=== PATIENT | male | born 1955 | race Caucasian/White ===

== ENCOUNTER 2017-03-10 14:16 | Outpatient (CLI) | payer OTHER ==
[2017-03-10 13:32] LABS: ALBUMIN/GLOBULIN RATIO 1.5 (1.0-2.2); BILIRUBIN,TOTAL 0.7 mg/dL (0.2-1.0); BUN - BLOOD UREA NITROGEN 13 mg/dL (6-20); CALCIUM 9.1 mg/dL (8.5-10.3); CARBON DIOXIDE - CO2 27 mmol/L (21-32); CHLORIDE 105 mmol/L (101-111); CHOL/HDL RATIO 2.8 (<5.0); CHOLESTEROL 161 mg/dL; CREATININE 0.9 mg/dL (0.6-1.2); GFR - MDRD 86 (>89); GLUCOSE 102 mg/dL (70-100); HDL CHOLESTEROL 58 mg/dL; LDL/HDL RATIO 1.5 (<3.6); POTASSIUM 4.4 mmol/L (3.5-5.0); SODIUM 138 mmol/L (135-145); TOTAL PROTEIN 7.2 g/dL (6.7-8.2); TRIGLYCERIDES 86 mg/dL; VLDL CHOLESTEROL 17 mg/dL
== END 2017-03-10 14:17 | disposition home or self-care (01) ==
LOC: LAB.R 14:16
PROVIDERS: ATTEND Internal Medicine
DX: R97.20 Elevated prostate specific antigen [PSA] (principal); E78.5 Hyperlipidemia, unspecified; E03.9 Hypothyroidism, unspecified; Z79.899 Other long term (current) drug therapy
CPT/HCPCS: 80053; 80061; 84153; 84443

== ENCOUNTER 2017-06-21 10:39 | Outpatient (CLI) | payer OTHER ==
[2017-06-21 11:43] LABS: PSA FREE 0.476 ng/mL (0.16-2.81)
[2017-06-21 11:44] LABS: PSA TOTAL 2.995 ng/mL (0.000-2.000)
== END 2017-06-21 10:40 | disposition home or self-care (01) ==
LOC: LAB 10:39
PROVIDERS: ATTEND Internal Medicine
DX: R89.9 Unspecified abnormal finding in specimens from other organs, systems and tissues (principal)
CPT/HCPCS: 36415; 84154

== ENCOUNTER 2018-04-03 08:13 | Outpatient (CLI) | payer OTHER ==
[2018-04-03 13:25] LABS: BASOPHILS # (AUTO) 0.1 10^3/uL (0.0-0.1); BASOPHILS % (AUTO) 1.1 %; EOSINOPHILS # (AUTO) 0.3 10^3/uL (0.0-0.7); EOSINOPHILS % (AUTO) 4.3 %; HGB - HEMOGLOBIN 15.5 g/dL (14.0-18.0); LYMPHOCYTES # (AUTO) 1.1 10^3/uL (1.5-3.5); LYMPHOCYTES % (AUTO) 16.5 %; MEAN CORPUSCULAR HEMOGLOBIN 30.9 pg (27.0-31.0); MEAN CORPUSCULAR VOLUME 88.3 fL (80.0-94.0); MEAN PLATELET VOLUME 9.3 fL (7.4-11.4); MONOCYTES # (AUTO) 0.6 10^3/uL (0.0-1.0); MONOCYTES % (AUTO) 8.1 %; NEUTROPHILS # (AUTO) 4.8 10^3/uL (1.5-6.6); PLT - PLATELET COUNT 172 10^3/uL (130-450); RED BLOOD COUNT 5.01 10^6/uL (4.70-6.10); RED CELL DISTRIBUTION WIDTH 14.5 % (12.0-15.0); WHITE BLOOD COUNT 6.9 x10^3/uL (4.8-10.8)
[2018-04-03 13:50] LABS: PSA FREE 1.257 ng/mL (0.16-2.81)
[2018-04-03 13:51] LABS: PSA TOTAL 5.264 ng/mL (0.000-2.000)
[2018-04-03 13:58] LABS: ALBUMIN 4.1 g/dL (3.2-5.5); ALBUMIN/GLOBULIN RATIO 1.2 (1.0-2.2); ALKALINE PHOSPHATASE 89 IU/L (42-121); ALT ALANINE AMINOTRANSFERASE 23 IU/L (10-60); AST ASPARTATE AMINOTRANSFERASE 19 IU/L (10-42); BILIRUBIN,TOTAL 0.9 mg/dL (0.2-1.0); BUN - BLOOD UREA NITROGEN 17 mg/dL (6-20); CARBON DIOXIDE - CO2 27 mmol/L (21-32); CHLORIDE 103 mmol/L (101-111); CHOL/HDL RATIO 3.9 (<5.0); CHOLESTEROL 189 mg/dL; CREATININE 0.9 mg/dL (0.6-1.2); GFR - MDRD 86 (>89); GLUCOSE 117 mg/dL (70-100); HDL CHOLESTEROL 48 mg/dL; LDL CHOLESTEROL,CALCULATED 122 mg/dL; LDL/HDL RATIO 2.5 (<3.6); SODIUM 138 mmol/L (135-145); TOTAL PROTEIN 7.4 g/dL (6.7-8.2); VLDL CHOLESTEROL 19 mg/dL
== END 2018-04-03 23:59 | disposition home or self-care (01) ==
LOC: LAB.R 08:13
PROVIDERS: ATTEND Internal Medicine
DX: R97.20 Elevated prostate specific antigen [PSA] (principal); R89.9 Unspecified abnormal finding in specimens from other organs, systems and tissues; E78.5 Hyperlipidemia, unspecified; E03.9 Hypothyroidism, unspecified
CPT/HCPCS: 80053; 80061; 83721; 84153; 84154; 84443; 85025

== ENCOUNTER 2018-12-12 09:37 | Outpatient (CLI) | payer OTHER ==
[2018-12-12 10:07] LABS: HB2 TOTAL 16.3 g/dL; HEMOGLOBIN A1C 0.59 g/dL; HEMOGLOBIN A1C % 5.5 % (4.6-6.2)
[2018-12-12 10:08] LABS: CREATININE 0.8 mg/dL (0.6-1.2)
== END 2018-12-12 09:38 | disposition home or self-care (01) ==
LOC: LAB 09:37
PROVIDERS: ATTEND Family Medicine
DX: R73.9 Hyperglycemia, unspecified (principal)
CPT/HCPCS: 36415; 80048; 83036

== ENCOUNTER 2025-03-03 18:17 | Inpatient (IN) ==
--- OUTSIDE RECORDS SUMMARY | 2025-03-03 18:19 | EXTERNAL MEDICAL SUMMARY RPT | Encounter Summary ---
Author Organization [facility] Address [address] [place] [address] Care Team Providers Care Marketing Administrator Name Role Phone SantyYisel elizabeth Primary Care Provider [phone] Encounter Details Date Type Department Care Team (Late st Contact Info) Description 11/22/2020 Orders Only [facility] Orthopedics [place] [address] [place] [address] Ascencion Villanueva DO [address] [address] Primary osteoarthritis of right knee (Primary Dx) Social History Tobacco Use Types Packs/Day Years Used Date Smoking Tobacco: Never Smokeless Tobacco: Never Alcohol Use Standard Drinks/Week Comments Not Currently 0 (1 standard drink = 0.6 oz pur e alcohol) STOPPED 2019 PHQ-2 Answer Date Recorded PHQ-2 Score 0 04/16/2020 Sex and Gender Information Value Date Recorded Sex Assigned at Male 06/26/2020 7:34 AM PDT Legal Sex Male 3:39 PM PDT Gender Identity Male 05/31/2024 4:43 PM PST Sexual Orientation Straight 05/31/2024 4: 43 PM PST Occupation Industry Job Start Date Job End Date 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 No / Unsure 11/10/2020 11:53 AM PDT documented as of this encounter Plan of Treatment Upcoming Encounters Date Type Department Care Team (Late st Contact Info) Description 03/26/2025 11:20 AM PST Office Visit [facility] Cardiology [place] [address] [place] [address], [address] [place] [phone] Della Cloud MD [address] [place] [address] [address] [place], [place] [phone] 04/30/2025 11:00 AM PST Office Visit [facility] Family Medicine [place] [address] [place] [address] Yisel Madera DO [address] [place] [phone] 05/27/2025 12:00 PM PST Office Visit [facility] - Sleep Medicine [address] [facility] [address] [place] [phone] Marely Gutierrez ARNP [address] [place], [place] [phone] documented as of this encounter Visit Diagnoses Diagnosis Primary osteoarthritis of right knee- Primary documented in this encounter Care Teams Marketing Administrator Relationship Specialty Start Date End Date Yisel Madera DO [facility] [place] [address] PCP - General Family Medicine 04/22/20 documented as of this encounter
--- OUTSIDE RECORDS SUMMARY | 2025-03-03 18:19 | EXTERNAL MEDICAL SUMMARY RPT | Encounter Summary ---
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 Not on file Not on file documented as of this encounter Plan of Treatment Upcoming Encounters Date Type Department Care Team (Late st Contact Info) Description 03/26/2025 11:20 AM PST Office Visit [facility] Cardiology [address], [address] [place] [address] Della Cloud MD [address] [address] [place] [address] 04/30/2025 11:00 AM PST Office Visit [facility] [address] [place] [address] Yisel Madera DO [address] [place] [address] 05/27/2025 12:00 PM PST Office Visit [facility] - Sleep Medicine [address] [facility] [address] [place] [address] Marely Gutierrez [facility] [address] [place] [address] documented as of this encounter Visit Diagnoses Not on filedocumented in this encounter Care Teams Structural Metal Worker Relationship Specialty Start Date End Date Yisel Madera DO [address] [place] [address] PCP - General Family Medicine 04/22/20 documented as of this encounter
--- OUTSIDE RECORDS SUMMARY | 2025-03-03 18:19 | EXTERNAL MEDICAL SUMMARY RPT | Patient Health Record ---
Author Organization [facility] Address [address] [id number] Care Team Providers Care Sap Pp Consultant Name Role Phone Michelle, Pcp Primary Care Provider Jey AgueroMason otto Tylor [phone] Allergies Allergen (clinical drug ingredient) Drug/Non Drug Allergy documented on EMR Reaction Allergy Type Onset Date Status amoxicillin Amoxicillin hot and chills Drug Allergy Active Results Component Value Reference Range Notes GI Histology Reviewed date:11/30/2024 07:08:14 AM Interpretation: Performing Lab: Notes/Report: Referring Physician : PCP MICHELLE, Location : [facility] : [address] [place] [address] [address], [place], [place] ,[address] A:Colon,Ascending Diagnosis Summary :Sessile serrated adenoma. MicroScopic Description : Clinical History:\line \b Symptoms \E : Other-Personal history of colon polyps,Grade/Stage I internal hemorrhoids,Mild diverticulosis of the descending colon and sigmoid colon,1 polyp (3 mm) in the ascending colon. (Polypectomy) Site ID:A Gross Description:Specimen(s) are received in formalin, labeled with the patient name and requisition number which is matched to the requisition and further consists of: two pieces, 3-7mm, sectioned, 1 cassette submitted for slide preparation. Electronically signed by : Dr.John Hubbard on :11/29/2024 13:59:11 Reason For Referral No Information Medications Medication SIG (Take, Route, Frequency, Duration) Notes Start Date End Date Status Suflave 178.7 GM Solution Reconstituted mL Orally as directed; Duration: 1 days 10/22/2024 Active Metoprolol Succinate 50 MG Capsule ER 24 Hour Sprinkle 1.5 tablets Orally Once a day Active Levothyroxine Sodium 200 MCG Tablet 1 tablet in the morning on an empty stomach Orally Once a day Active Immunizations Vaccine Route Administration Date Status Comme nts Influenza, seasonal, injecta ble (split), for 3 yrs and up Unknown 12/25/2012 Administered Social History Social History Additional Details Category Social Info Options Details Migrated Social History Migrated Social History Tobacco History : Never Smok ed , Caffeine History : Diet soda , Alcohol: Wine : Frequency Value: 1 glass daily , Number of Children : 2 , Exercise History: : [employer] daily Times A Day , Caffeine History : Coffee , Occupation History : Retired , NumberOfPreviousMarriages : 0 Problems Problem Type SNOMED Code ICD Code Onset Dates Problem Status W/U Status Risk Notes Problem Polyp of colon (disorder) (03097220) Colon polyps (K63.5) 02/04/2016 Active confirmed Problem Pain (00918785) Back Pain (chronic ) (R52) 02/16/2019 Active confirmed Vital Signs Weight-kg 131.54 kg 10/19/2024 Height 74 in 10/19/2024 Weight 290 lbs 10/19/2024 BMI 37.23 kg/m2 10/19/2024 Procedures Procedure Date Ordered Date Performed Result Body Sit e Fast Track Colonoscopy 10/19/2024 N/A Encounters Encounter Location Date Provider Diagnosis [facility] [place] [address] [place] [phone] 11/27/2024 Mason Mergener Encounter for screen ing for malignant neoplasm of colon Z12.11 ; Personal history of colon polyps, unspecified Z86.0100 ; Benign neoplasm of ascending colon D12.2 ; Diverticulosis of large intestine without perforation or abscess without bleeding K57.30 and First degree hemorrhoids K64.0 [facility] [address] [place] [phone] 10/19/2024 Mason Mergener Encounter for screen ing for malignant neoplasm of colon Z12.11 [facility] [place] [address] [place] [address] 10/22/2024 Mason Mergener Assessments Encounter Date Diagnosis (ICD Code) Assessment Notes Treatment Notes Treatment Clinical Notes Section Notes 10/19/2024 Encounter for screening for malignant neoplasm of colon (ICD-10 - Z12.11) 11/27/2024 Encounter for screening for malignant neoplasm of colon (ICD-10 - Z12.11) 11/27/2024 Personal history of colon polyps, unspecified (ICD-10 - Z86.0100) 11/27/2024 Benign neoplasm of ascending colon (ICD-10 - D12.2) 11/27/2024 Diverticulosis of large intestine without perforation or abscess without bleeding (ICD-10 - K57.30) 11/27/2024 First degree hemorrhoids (ICD-10 - K64.0) Plan Of Treatment Pending Test Test Name Order Date Fast Track Colonoscopy 10/19/2024 Insurance Providers Payer Name Payer Address Payer Phone Subscriber Number Group Number Insured Name Patient Relationship to Insured Coverage Start Date Coverage End Date MEDICARE B [place] [address] [place] [address] [id number] Willy Ac Self - patient is the insured [employer] SUPPLEMENT [address] [address] [place] [address] [id number] Willy Ac Self - patient is the insured Medical (General) History Medical History History ICD Code Problems: DJD Elevated PSA Sleep Apnea (CPAP) Thyroid disorder Colon polyps Diverticulosis Internal hemorrhoids Surgical History Surgery Date(Month/Year) Hip replacement, bilateral Knee surgery, bilateral L shoulder repair 2015 R Bicep reattachment 2016
--- OUTSIDE RECORDS SUMMARY | 2025-03-03 18:19 | EXTERNAL MEDICAL SUMMARY RPT | Encounter Summary ---
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 Not on file Not on file documented as of this encounter Plan of Treatment Upcoming Encounters Date Type Department Care Team ([facility] Contact Info) Description 03/26/2025 11:20 AM PST Office Visit [facility] Cardiology [address], [address] [place] [phone] Della Cloud MD [address] [place] [address] [address] [place], [place] [phone] 04/30/2025 11:00 AM PST Office Visit [facility] [address] [place] [address] Yisel Madera DO [address] [place] [address] 05/27/2025 12:00 PM PST Office Visit [facility] - Sleep Medicine [address] [facility] [address] [place] [address] Marely Gutierrez ARNP [address] [place] [address] documented as of this encounter Visit Diagnoses Diagnosis Acquired hypothyroidism Unspecified hypothyroidism documented in this encounter Care Teams Chef Head Relationship Specialty Start Date End Date Ysiel Madera DO [address] [place] [address] PCP - General Family Medicine 04/22/20 documented as of this encounter
--- OUTSIDE RECORDS SUMMARY | 2025-03-03 18:19 | EXTERNAL MEDICAL SUMMARY RPT | Clinical Summary ---
Author Organization [facility] Address [address], [place] [address] Care Team Providers Care Oral Health Therapist Name Role Phone Yisel Madera DO Primary Care Provider [phone] Allergies Active Allergy Reactions Criticality Noted Date Comments Amoxicillin Legacy Name: amoxicillin, Reaction: Gl bleed Social History Tobacco Use Types Packs/Day Years Used Date Smoking Tobacco: Never Assessed Sex and Gender Information Value Date Recorded Sex Assigned at Not on file Legal Sex Male 5:10 AM PDT Gender Identity Male 10/30/2021 5:10 AM PDT Sexual Orientation Not on file Last Filed Vital Signs Vital Sign Reading Time Taken Comments Blood Pressure - - Pulse 65 2021 11:05 AM PST Temperature - - Respiratory Rate 14 2021 11:05 AM PST Oxygen Saturation 95% 2021 11:05 AM PST Inhaled Oxygen Concentration - - Weight 134 kg (295 lb 10.2 oz) 2021 6:35 A M PST Height 188 cm (6' 2") 2021 6:35 AM PST Body Mass Index 37.96 2021 6:35 AM PST Plan of Treatment Not on file Care Teams Oral Health Therapist Relationship Specialty Start Date End Date Yisel Madera DO [address] [place] [phone] PCP - General 04/17/21
--- OUTSIDE RECORDS SUMMARY | 2025-03-03 18:19 | EXTERNAL MEDICAL SUMMARY RPT | Encounter Summary ---
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 Not on file Not on file documented as of this encounter Miscellaneous Notes * Telephone Encounter - Maribell Guevara - 06/28/2022 12:58 PM PDT Patient requesting refill of: Requested Prescriptions Pending Prescriptions Disp Refills • levothyroxine (SYNTHROID) 175 mcg tablet 90 tablet 2 Sig: Take 1 tablet (175 mcg total) by mouth daily Last Refilled: 12/04/2021 Discrepancies: None Last Office Visit With Yisel Madera DO: 12/29/2020 Future Office Visit With Provider: none Labs: Lab Results Component Value Date CREATININE 0.87 10/29/2020 K 4.9 10/29/2020 BCR 16.1 10/29/2020 TSH 0.574 07/13/2021 HGB 13.8 11/12/2020 documented in this encounter Plan of Treatment Upcoming Encounters Date Type Department Care Team (Late st Contact Info) Description 03/26/2025 11:20 AM PST Office Visit [facility] Cardiology [place] [address], [address] [place] [address] Della Cloud MD [address] [place], [place] [phone] 04/30/2025 11:00 AM PST Office Visit [facility] Family Medicine [place] [address] [place] [phone] Yisel Madera DO [address] [place] [address] 05/27/2025 12:00 PM PST Office Visit [facility] [place] - Sleep Medicine [address] [facility] [address] [place] [address] Marely Gutierrez ARNP [address] [place], [place] [phone] documented as of this encounter Visit Diagnoses Diagnosis Acquired hypothyroidism Unspecified hypothyroidism documented in this encounter Care Teams Hotel Reservationist Relationship Specialty Start Date End Date Yisel Madera DO [address] [place] [address] PCP - General Family Medicine 04/22/20 documented as of this encounter
--- OUTSIDE RECORDS SUMMARY | 2025-03-03 18:20 | EXTERNAL MEDICAL SUMMARY RPT | Encounter Summary ---
Author Organization [facility] Address [address] [place] [address] Care Team Providers Care Silver Lap Machine Tender Name Role Phone SantyYisel Primary Care Provider [phone] Reason for Visit * Reason Onset Date Comments reschedule surgery 06/12/2020 Encounter Details Date Type Department Care Team (Late st Contact Info) Description 06/12/2020 Telephone [facility]opedics [place] [address] [place] [phone] Ascencion Villanueva DO [address] [address] reschedule surgery Social History Tobacco Use Types Packs/Day Years Used Date Smoking Tobacco: Never Smokeless Tobacco: Never Alcohol Use Standard Drinks/Week Comments Yes 0 (1 standard drink = 0.6 oz pur e alcohol) 2-3 drinks weekly PHQ-2 Answer Date Recorded PHQ-2 Score 0 04/16/2020 Sex and Gender Information Value Date Recorded Sex Assigned at Male 06/26/2020 7:34 AM PDT Legal Sex Male 3:39 PM PDT Gender Identity Male 05/31/2024 4:43 PM PST Sexual Orientation Straight 05/31/2024 4: 43 PM PST Occupation Industry Job Start Date Job End Date 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 I am not able to use the one that is in the system since he was scheduled for surgery and checked in at the hospital but was cancelled so that case has been used, thank you! * Telephone Encounter - Jaymie Patel - 06/17/2020 4:03 PM PDT [place] has authorized surgery, called patient and got him scheduled for 4-[address] Villanueva. * Telephone Encounter - Jaymie Patel - 06/16/2020 5:23 PM PDT Authorization submitted to [place] for surgery. * Telephone Encounter - Luz Marina Sanz RN - 06/13/2020 7:48 AM PDT It looks like Willy was scheduled for a right RYLEY with Dr. Villanueva on 02/18/20. His surgery was cancelled the day of surgery due to new onset A. Fib with frequent PVCs. He was referred to Cardiology and has been following up with them regarding this. He had a telemedicine appointment yesterday with Dr. Cloud and per those OV notes: # Pre-op for hip surgery: patient is low to intermediate risk due to immobility and can proceed with it without further cardiac testing. - Continue metoprolol marcia-operative Forwarding to [employer]. Willy is okay to proceed with surgery at this time. Thank you! * Telephone Encounter - Sylvie Torres - 06/12/2020 3:37 PM PDT Patient was scheduled with Dr Villanueva for hip replacement surgery on 02/18/2020. Patient cancelled due to a cardiac event. Patient was cleared by cardiology today. Does patient need to see Dr Villanueva again or just schedule the surgery Please advise [phone] documented in this encounter Plan of Treatment Upcoming Encounters Date Type Department Care Team (Late st Contact Info) Description 03/26/2025 11:20 AM PST Office Visit [facility] [place] [address] [place] [address], [address] [place] [address] Della Cloud MD [address] [place] [address] [address] [place], [place] [phone] 04/30/2025 11:00 AM PST Office Visit [facility] Family Medicine [place] [address] [place] [phone] Yisel Madera DO [address] [place] [phone] 05/27/2025 12:00 PM PST Office Visit [facility] - Sleep Medicine [address] [facility] [address] [place] [phone] Marely Gutierrez ARNP [address] [place], [place] [phone] documented as of this encounter Visit Diagnoses Not on filedocumented in this encounter Care Teams Silver Lap Machine Tender Relationship Specialty Start Date End Date Yisel Madera DO [address] [place] [phone] PCP - General Family Medicine 04/22/20 documented as of this encounter
--- OUTSIDE RECORDS SUMMARY | 2025-03-03 18:20 | EXTERNAL MEDICAL SUMMARY RPT | Encounter Summary ---
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 Not on file Not on file documented as of this encounter Plan of Treatment Upcoming Encounters Date Type Department Care Team (Late st Contact Info) Description 03/26/2025 11:20 AM PST Office Visit [facility] Cardiology [address], [address] [place] [phone] Della Cloud MD [address] [place] [place] [address] 04/30/2025 11:00 AM PST Office Visit [facility] [address] [place] [address] Yisel Madera DO [address] [place] [address] 05/27/2025 12:00 PM PST Office Visit [facility] - Sleep Medicine [address] [facility] [address] [place] [address] Marely Gutierrez ARNP [address] [place] [address] documented as of this encounter Visit Diagnoses Diagnosis Acute knee pain, unspecified laterality- Primary documented in this encounter Care Teams Flour Inspector Relationship Specialty Start Date End Date Yisel Madera DO [address] [place] [address] PCP - General Family Medicine 04/22/20 documented as of this encounter
--- OUTSIDE RECORDS SUMMARY | 2025-03-03 18:20 | EXTERNAL MEDICAL SUMMARY RPT | Encounter Summary ---
Author Organization [facility] Address [address] [place] [address] Care Team Providers Care Button Reclaimer Name Role Phone Yisel Madera DO Primary Care Provider Encounter Details Date Type Department Care Team (Late st Contact Info) Description 02/07/2020 Case/Admission [facility] [place] [address] [place] [phone] Claritza Urrutia PA [address] [address] Social History Tobacco Use Types Packs/Day Years Used Date Smoking Tobacco: Never Smokeless Tobacco: Never Alcohol Use Standard Drinks/Week Comments Yes 0 (1 standard drink = 0.6 oz pur e alcohol) 2-3 drinks weekly Sex and Gender Information Value Date Recorded Sex Assigned at Male 06/26/2020 7:34 AM PDT Legal Sex Male 3:39 PM PDT Gender Identity Male 05/31/2024 4:43 PM PST Sexual Orientation Straight 05/31/2024 4: 43 PM PST documented as of this encounter H&P Notes * ANALISA Manriquez - 02/07/2020 11:51 AM PST Admission History and Physical by CY Choudhury for Dr. Villanueva Date of Admission: 02/18/2020 Willy Ac 1955 [id number] Impression: Right hip arthritis Plan: The patient would like to proceed with right total hip arthroplasty with anterolateral approach. The nature of the surgery, alternatives, and postpoerative course were discussed with the patient. Risks and complications of surgery were reviewed. These include, but are not limited to: Anesthetic risk, medical complications such as heart attack, stroke, deep vein thrombosis or pulmonary embolism, respiratory or cardiac arrest, or . There is risk of injury to nerves, tendons, blood vessels, fracture, or possible need for additional surgery. Additional risks associated with total hip replacement including potential for postoperative stiffness, fracture around the prosthesis both intraoperatively and at a later date, instability of the joint, potential for malalignment of the prosthesis, potential for leg length inequality, possibility that the prosthesis may loosen or need to be revised at a later date, and possible need for postoperative blood transfusion. Patient was advised regarding the potential for infection both early and late. The difficulties associated with an infected joint replacement were discussed including the possible need to remove the prosthesis. The patient hadopportunity to ask questions. The patient has given his written and verbal consent to undergo the above procedure. Anticoagulation plan: aspirin Analgesia plan: oxycodone Torres: No Admission status: OPIB Patient will have routine postop follow up at 2 weeks with PA for wound check and at [address] Villanueva , with xrays. The patient was instructed to stop aspirin and NSAID's 1 week prior to surgery and was given written instructions and the materials for pre-op skin prep. He has been instructed to get a COVID generalscreening test 3 days prior to surgery. LEFT HIP IMPLANTS: Femur = 5 Tri-lock Cup = 60 mm Liner = 36 neutral Head = 36 +1 ceramic No chief complaint on file. HPI: The patient is a 64 y.o. male complaining of Right hip pain. He had the left hip replaced 04/2017 and it has done very well. He now wishes to have the right hip replaced. The pain is located lateral which radiates down the leg Patient describes the pain as: aching most of the time, worse the day after activity Tingling, numbness or paresthesias: no Snapping, popping or grinding: no Stiffness: yes, worse after sitting Instability: no Ambulates: occasionally uses trekking poles. 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 • Sleep apnea Uses CPAP Past Surgical History: Procedure Laterality Date • [place] TOTAL HIP ARTHROPLASTY Left 05/10/2017 Procedure: LEFT ANTERIOR TOTAL HIP ARTHROPLASTY; Surgeon: Ascencion Villanueva DO; Location: [facility]; Service: Orthopedics • SHOULDER ARTHROSCOPY Left 04/13/2016 With SAD, distal clavical resection • SHOULDER ARTHROSCOPY Right 04/15/2015 w bicepes tendonesis No Known Allergies Current Outpatient Medications Medication Sig Dispense Refill • ibuprofen (ADVIL,MOTRIN) 200 mg tablet Take 200 mg by mouth every 6 (six) hours as needed for mild pain Takes 800 mg PRN • levothyroxine (SYNTHROID, LEVOTHROID) 200 mcg tablet Take 200 mcg by mouth once daily. 0 No current facility-administered medications for this visit. No family history on file. Social History Socioeconomic History • Marital status: Spouse name: Not on file • Number of children: Not on file • Years of education: Not on file • Highest education level: Not on file Occupational History • Not on file Social Needs • Financial resource strain: Not on file • Food insecurity Worry: Not on file Inability: Not on file • Transportation needs Medical: Not on file Non-medical: Not on file Tobacco Use • Smoking status: Never Smoker • Smokeless tobacco: Never Used Substance and Sexual Activity • Alcohol use: Yes Comment: 2-3 drinks weekly • Drug use: Yes Types: Marijuana Comment: inhale • Sexual activity: Defer Lifestyle • Physical activity Days per week: Not on file Minutes per session: Not on file • Stress: Not on file Relationships • Social connections Talks on phone: Not on file Gets together: Not on file Attends gnosticist service: Not on file Active member of club or organization: Not on file Attends meetings of clubs or organizations: Not on file Relationship status: Not on file Other Topics Concern • Not on file Social History Narrative • Not on file Review of Systems Constitutional: Negative for fatigue, fever, night sweats and unexpected weight change. ENT: Negative for headache, vision loss. Respiratory: Negative for cough and shortness of breath. Cardiovascular: Negative for chest pain and palpitations. Gastrointestinal: Negative for constipation, diarrhea, nausea and vomiting. Endocrine: Negative for cold intolerance and heat intolerance. Genitourinary: Negative for difficulty urinating, dysuria, blood in urine. Skin: Negative for rash. Allergic/Immunologic: Negative for environmental allergies and food allergies. Neurological: Negative for headaches and vision loss. Hematological: Negative for easy bruising Physical Exam: There were no vitals taken for this visit. The patient is a 64 y.o. male well appearing, well nourished, in no acute distress. Alert, orientedand cooperative to exam. Normal mood and affect. HEENT: Head is normocephalic, atraumatic. Sclera non-icteric Lungs: Clear to auscultation with no crackles, rhonchi or wheezes Heart: Regular rate and rhythm with no murmurs, gallop or rub Abdomen: Soft, nontender Extremity: Right Hip: The skin is intact. Negative for erythema, masses or trophic changes. Tender to palpation over the anterior joint. Leg Length discrepancy: none JOSEPH: positive FABIR: positive Straight leg raise: negative for groin pain ROM: Right Flexion: 90 External rotation: 20 Abduction: 30 Internal rotation: -10 Neurologic: Sensation is grossly intact to light touch in all dermatomes. Vascular: Foot is pink, warm and well perfused. Dorsalis pedis pulse is palpable. Labs: Ordered: CBC, BMP COVID-19 general screening Diagnostic Studies: Xrays of the pelvis and 2 views of the right hip reveal severe joint space narrowing, osteophytes, subchondral sclerosis, cystic changes ANALISA Manriquez documented in this encounter Plan of Treatment Upcoming Encounters Date Type Department Care Team (Late st Contact Info) Description 03/26/2025 11:20 AM PST Office Visit [facility] [address], [address] [place] [phone] Della Cloud MD [address] [place] [address] [address] [place] [address] 04/30/2025 11:00 AM PST Office Visit [facility] [place] [address] [place] [phone] Yisel Madera DO [address] [place] [address] 05/27/2025 12:00 PM PST Office Visit [facility] [place] [facility] [address] [facility] [address] [place] [address] Marely Gutierrez, LIGIA [address] [place] [address] documented as of this encounter Visit Diagnoses Not on filedocumented in this encounter Care Teams Button Reclaimer Relationship Specialty Start Date End Date Yisel Madera DO [address] [place] [address] PCP - General Family Medicine 04/22/20 documented as of this encounter
--- OUTSIDE RECORDS SUMMARY | 2025-03-03 18:20 | EXTERNAL MEDICAL SUMMARY RPT ---
Author Organization [facility] Address [address] [id number] Care Team Providers Care Signals Collection Technician Name Role Phone No, Pcp Primary Care Provider Mason Shahid Unavailable [phone] REASON FOR VISIT Personal Hx of Colon Polyps, Encounters Encounter Location Date Provider Diagnosis [facility] [address] [place] [address] 11/27/2024 Mason Duran Encounter for screen ing for malignant neoplasm of colon Z12.11 ; Personal history of colon polyps, unspecified Z86.0100 ; Benign neoplasm of ascending colon D12.2 ; Diverticulosis of large intestine without perforation or abscess without bleeding K57.30 and First degree hemorrhoids K64.0 Assessments Encounter Date Diagnosis (ICD Code) Assessment Notes Treatment Notes Treatment Clinical Notes Section Notes 11/27/2024 Encounter for screening for malignant neoplasm of colon (ICD-10 - Z12.11) 11/27/2024 Personal history of colon polyps, unspecified (ICD-10 - Z86.0100) 11/27/2024 Benign neoplasm of ascending colon (ICD-10 - D12.2) 11/27/2024 Diverticulosis of large intestine without perforation or abscess without bleeding (ICD-10 - K57.30) 11/27/2024 First degree hemorrhoids (ICD-10 - K64.0) Plan Of Treatment No Information Progress Notes * Willy ACDOB: 8 (69 yo M)Acc No.[id number]:11/27/2024 Patient: Lesly wendypedroWilly Provider: Zhanna Duran MD :1955 A ge:69 Y S ex:Male Date:11/27/2024 Address:[address] [place] [address] [place] [phone] Pcp:Pcp No Subjective: * Chief Complaints: * P ersonal Hx of Colon Polyps, Assessment: * Assessment: 1. E ncounter for screening for malignant neoplasm of colon - Z12.11 2 . P ersonal history of colon polyps, unspecified - Z86.0100 3 . B enign neoplasm of ascending colon - D12.2 4 . D iverticulosis of large intestine without perforation or abscess without bleeding - K57.30 5 . F irst degree hemorrhoids - K64.0 Plan: * Procedure Codes: 4 5385 COLONOSCOPY with SNARE POLYPECTOMY, Modifiers: PT Billing Information: * Procedure Codes: 21074 COLONOSCOPY with SNARE POLYPECTOMY. Modifiers: PT * Electronic signature of Jana Duran MD on 03/03/2025 at 06:20 PM PST Sign off status: Pending * Provider: Zhanna Duran MD Date: 0 11/27/2024 Generated for Marciano diaz/Gissell/eTransmitting on: 1 05/04/2024 06:20 PM PST
--- OUTSIDE RECORDS SUMMARY | 2025-03-03 18:20 | EXTERNAL MEDICAL SUMMARY RPT | Encounter Summary ---
Author Organization [facility] Address [address] [place] [address] Care Team Providers Care Architectural Technologist Name Role Phone Yisel Madera Primary Care Provider Encounter Details Date Type Department Care Team (Late st Contact Info) Description 10/29/2020 Case/Admission 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 Villanueva Date of Admission: 11/11/2020 Willy Ac 1955 [id number] Impression: Right knee arthritis Plan: The patient would like to proceed with right total knee arthroplasty with posterior stabilized implants. The nature of the surgery, alternatives, and postoperative course were discussed with the patient. Risks and complications of surgery were reviewed. These include, but are not limited to: Anesthetic risk, medical complications such as heart attack, stroke, deep vein thrombosis or pulmonary embolism, respiratory or cardiac arrest, or . There is risk of injury to nerves, tendons, blood vessels, fracture, or possible need for additional surgery. The patient was advised that even with surgery the condition may be no better or could be worse. Additional risks associated with total knee replacement including potential for postoperative stiffness, fracture around the prosthesis both intraoperatively and at a later date, potential for malalignment of the prosthesis; the prosthesis may loosen or need to be revised at a later date, and possible need for postoperative blood transfusion. Patient was advised regarding the potential for infection both early and late. The difficulties associated with an infected joint replacement were discussed including the possible need to remove the prosthesis. The goal of surgery is to reduce pain; range of motion, strength, and function may not beimproved or could be worse. The patient had opportunity to ask questions. The patient has given hiswritten and verbal consent to undergo the above procedure. Torres: no Analgesia Plan: Percocet Anticoagulation plan: aspirin Significant medical history includes irregular heart beat, paroxysmal atrial tachycardia, PVC's, sleep apnea, obesity, and thyroid disorder. Admission status: OPIB Anesthesia: general (unable to do spinal at last surgery) Patient will have routine postop follow up at 2 weeks with PA for wound check and at [address] Villanueva with xrays. The patient was instructed to stop aspirin and NSAID's 1 week prior to surgery and was given written instructions and the materials for pre-op skin prep. The patient will get a COVID-19 general screening test done 3 days prior to surgery. Chief Complaint Patient presents with • Right Knee - Pre-op Exam *KP right tka surgery date 11-11 Dr Villanueva. MARBLE COPER checked. HPI: The patient is a 65 y.o. male complaining of Right knee pain. The pain is located deep inside the whole knee. Onset: Many years Patient describes the pain as: aching or sharp Tingling, numbness or paresthesias: in the hands Snapping, popping or grinding: grinding, popping Locking or catching: catching He complains of swelling, stiffness and instability. He ambulates with a cane ocasionally Previous treatments: cortisone injections, Tylenol, NSAID's The patient had hip replacement surgery in June, and did quite well, except he could not have the epidural. 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 • Medial collateral ligament sprain of knee 1974 • PVC (premature ventricular contraction) • Sleep apnea Uses CPAP • Sleep apnea, obstructive 2001 Surgical History Past Surgical History: Procedure Laterality Date • [place] TOTAL HIP ARTHROPLASTY Left 05/10/2017 Procedure: LEFT ANTERIOR TOTAL HIP ARTHROPLASTY; Surgeon: Ascencion Villanueva DO; Location: [facility]; Service: Orthopedics • [place] TOTAL HIP ARTHROPLASTY Right 07/01/2020 Procedure: RIGHT LATERAL TOTAL HIP ARTHROPLASTY; Surgeon: Ascencion Villanueva DO; Location: [facility]; Service: Orthopedics • SHOULDER ARTHROSCOPY Left 04/13/2016 With SAD, distal clavical resection • SHOULDER ARTHROSCOPY Right 04/15/2015 w bicepes tendonesis Allergies Allergen Reactions • Amoxicillin Diarrhea Current Medications Current Outpatient Medications Medication Sig Dispense Refill • levothyroxine (SYNTHROID) 200 mcg tablet Take 1 tablet (200 mcg total) by mouth once daily 90 tablet 3 • metoprolol succinate XL (TOPROL-XL) 50 mg 24 hr tablet Take 1.5 tablets (75 mg total) by mouth every morning 135 tablet 3 No current facility-administered medications for this visit. 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 [employer] Tobacco Use • Smoking status: Never Smoker • Smokeless tobacco: Never Used Substance and Sexual Activity • Alcohol use: Not Currently Comment: STOPPED 2019 • Drug use: Not Currently Types: Marijuana Comment: inhale • Sexual activity: Yes Partners: Female control/protection: None Social History Narrative 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 male well appearing, well nourished, in no acute distress. Alert, orientedand cooperative to exam. Normal mood and affect. HEENT: Head is normocephalic, atraumatic. Sclera non-icteric Lungs: Clear to auscultation with no crackles, rhonchi or wheezes Heart: Regular rate and rhythm with no murmurs, gallop or rub Abdomen: Soft, nontender Extremity: Right Knee Skin is intact. Negative for erythema, ecchymosis, trophic changes, swelling, effusion or scars. Range of motion: Right 10-110, Left 10-110 There is no ligament instability to varus or valgus stress. Alignment: varus Sensation is intact to light touch distally. Vascular: The foot is pink and warm and well perfused.Dorsalis pedis pulses palpable Labs: Ordered: CBC, BMP COVID-19 general screening EKG done in office today Diagnostic Studies: Xrays of bilateral knees arthritis series dated 09/15/2020 reveal severe joint space narrowing, osteophytes and sclerosis. Femur is medially shifted on the tibia on the right knee. There is a hardware staple in the medial left distal femur documented in this encounter Plan of Treatment Upcoming Encounters Date Type Department Care Team (Late st Contact Info) Description 03/26/2025 11:20 AM PST Office Visit [facility] [place] [address], [address] [place] [phone] Della Cloud MD [address] [place] [address] [address] [place], [place] [phone] 04/30/2025 11:00 AM PST Office Visit [facility] [place] [address] [place] [address] Yisel Madera DO [address] [place] [address] 05/27/2025 12:00 PM PST Office Visit [facility] - Sleep Medicine [address] [facility] [address] [place] [phone] Marely Gutierrez, LIGIA [address] [place], [place] [phone] documented as of this encounter Visit Diagnoses Not on filedocumented in this encounter Care Teams Architectural Technologist Relationship Specialty Start Date End Date Yisel Madera DO [address] [place] [phone] PCP - General Family Medicine 04/22/20 documented as of this encounter"
--- OUTSIDE RECORDS SUMMARY | 2025-03-03 18:20 | EXTERNAL MEDICAL SUMMARY RPT | Clinical Summary ---
Author Organization [facility] Address [address] [place] [address] Care Team Providers Care Drill Hand Name Role Phone SantyYisel elizabeth Primary Care Provider [phone] Allergies Active Allergy Reactions Criticality Noted Date Comments Amoxicillin Diarrhea High 09/15/2020 Medications levothyroxine (SYNTHROID) 175 mcg tabletIndications:A cquired hypothyroidism take 1 tablet by mouth once daily 90 tablet 3 4 Active metoprolol succinate XL (TOPROL-XL) 50 mg 24 hr tablet TAKE 1 AND 1/2 TABLETS BY MOUTH DAILY 135 tablet 5 Active Active Problems Problem Noted Date Diagnosed Date Left knee pain 05/09/2024 Arthritis of left knee 05/09/2024 LOUISA (obstructive sleep apnea) 08/19/2023 Assessment & Plan (08/19/2023 3:51 PM PDT): Willy came in today to establish care for his LOUISA. He reports that he was diagnosed as having LOUISA over 30 years ago (previous sleep studies could not be located), and has been using a CPAP device since shortly after being diagnosed. He states that he loves his machine and cannot sleep without it. In fact, he feels like he is going to if he does not use his CPAP machine. However, his CPAP machine is quite old and would need replacement. It is not even capable of any download and appears not to be able to record data. All this years, he has been buying supplies [id number]. However, he would like a newer model replacement. I discussed with him that in order to process supplies and the new machine through insurance we would need a diagnostic study, and his old study could not even be located. Further, we would also need compliance data and there appears to be no way we can get data from his machine. Hence, I ordered a split-night study. The split-night will also determine optimal PAP pressure settings. (There is concern for obesity hypoventilation syndrome given some elevated CO2 in his history). Allergic rhinitis 04/20/2020 Severe myopia 04/16/2020 Acquired hypothyroidism 04/16/2020 Overview (04/16/2020): Initially diagnosed in approximately 2005 Primary osteoarthritis of right hip 12/26/2019 Overview (12/26/2019): Added automatically from request for surgery [id number] Osteoarthritis 05/10/2017 Encounters Date Type Department Care Team Description 02/28/2025 Orders Only [facility] Cardiology [place] [address], [place] [address] Della Cloud MD Paroxysmal atrial tachycardia; Hyperlipidemia, unspecified hyperlipidemia type 01/31/2025 Telephone [facility] Family Medicine [place] [address] [place] [address] Yisel Madera DO 01/29/2025 Telephone [facility] Resource Center [place] [address] [place] [address] Pcp, None Selected 01/01/2025 Refill [facility] Cardiology [place] [address], [address] [place] [address] Della Cloud MD from Last 3 Months Immunizations Immunization Administration Dates Next Due FLU High Dose 65+ Trivalent, PF (FLUZONE) 2023 FLU PF 6+Mos Quad (Fluzone, FluLaval, Fluarix) 1 04/29/2019,04/19/2012 FLU PF 6+Mos Trivalent 0.5ML (Fluzone, FluLaval, Fluarix) 02/10/2021,04/19/2012 MMR (M-M-R II) 09/12/1997,08/08/1997 Moderna Covid Vaccine Monovalent 06/30/2021 Moderna Covid Vaccine, Bivalent (12+) 01/25/2022 Moderna Covid-19 Vaccine, (12+) Seasonal 024 Moderna SARS-CoV-2 Vaccine Monovalent 02/10/2021 Wafaps-CZDY-EvE-2 Vaccine 07/15/2020,06/24/2020 Pneumococcal (PCV20) 11/09/2022 Family History Medical History Relation Comments Congenital heart disease Brother 1 Diabetes type II Brother 1 Arthritis Brother 2 Dementia Father Dementia Mother Relation Status Comments Brother 1 Brother 2 Father Mother Social History Tobacco Use Types Packs/Day Years Used Date Smoking Tobacco: Never Smokeless Tobacco: Never Tobacco Cessation:Counseling Given: Not Answered Alcohol Use Standard Drinks/Week Comments Yes 1 (1 standard drink = 0.6 oz pure alcohol) maybe 1 glass of wine every other day ENDOGENXities Answer Date Recorded In the past 12 months has e [employer], oil, or water [employer] threatened to shut off services in your home? No 05/31/2024 Humiliation, Afraid, Rape, and Kick questionnair e Answer Date Recorded Within the last year, have y ou been afraid of your partner or ex-partner? No 05/31/2024 Emotionally Abused Not on file 05/31/2024 Physically Abused Not on file 05/31/2024 Sexually Abused Not on file 05/31/2024 AUDIT-C Answer Date Recorded Q1: How often do you have a drink containing alc ohol? 2-4 times a month 01/18/2024 Q2: How many drinks containi ng alcohol do you have on a typical day when you are drinking? 1 or 2 01/18/2024 Q3: How often do you have si x or more drinks on one occasion? Never 01/18/2024 PHQ-2 Answer Date Recorded PHQ-2 Score 0 01/19/2024 Hunger Vital Sign Answer Date Recorded Within the past 12 months, y ou worried that your food would run out before you got the money to buy more. Never true 06/01/19 25 Ran Out of Food in the Last Year Not on file 05/31/2024 PRAPARE - Transportation Answer Date Re corded Lack of Transportation (Medical) Not on file 05/31/2024 In the past 12 months, has l ack of transportation kept you from meetings, work, or from getting things needed for daily living? No 05/31/2024 Housing Stability Vital Sign Answer Unruly e Recorded Unable to Pay for Housing in the Last Year Not o n file 05/31/2024 Number of Times Moved in the Last Year Not on fi le 05/31/2024 At any time in the past 12 m [facility], were you homeless or living in a nursing home (including now)? 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 Not on file Not on file Last Filed Vital Signs Vital Sign Reading Time Taken Comments Blood Pressure 110/72 07/11/2024 1:13 PM PDT Pulse 66 07/11/2024 1:13 PM PDT Temperature 36.4 C (97.6 F) 06/01/2024 7:47 AM PST Respiratory Rate 18 06/01/2024 7:47 AM PST Oxygen Saturation 98% 07/11/2024 1:13 PM PDT Inhaled Oxygen Concentration - - Weight 136 kg (300 lb) 07/11/2024 1:13 PM PDT Height 188 cm (6' 2.02") 05/31/2024 9:00 AM PST Body Mass Index 38.5 05/31/2024 9:00 AM PST Plan of Treatment Upcoming Encounters Date Type Department Care Team (Late st Contact Info) Description 03/26/2025 11:20 AM PST Office Visit [facility] Cardiology [address], [address] [place] [phone] Della Cloud MD [address] [place] [address] [address] [place] [address] 04/30/2025 11:00 AM PST Office Visit [facility] Family Medicine [place] [address] [place] [address] Yisel Madera DO [address] [place] [address] 05/27/2025 12:00 PM PST Office Visit [facility] - [place] - Sleep Medicine [address] [facility] [address] [place] [address] Marely Gutierrez, [place]IG[place] [address] [place] [address] Health Maintenance Due Date Last Done Comments Colorectal Cancer Screening (Colonoscopy) 2002 Colorectal Cancer Screening (FOBT) 2002 Colorectal Cancer Screening (Fecal DNA) 2002 Colorectal Cancer Screening Combined 2002 PSA Screening Discussion 11/10/2023 11/09/2022 Zoster Vaccines (2 of 2) 04/17/2024 02/21/2024 COVID-19 Vaccine ( season) 2024 01/19/2024, 01/25/2023, 01/25/2022, Additional history exists Influenza Vaccine (#1) 2024 , 02/10/2021, 02/27/2020, Additional history exists Depression Screening (PHQ-2) 01/18/2025 01/19/2024, 11/09/2022, 04/16/2020 Fall Risk Screening 01/18/2025 01/19/2024, 11/09/2022, 04/16/2020 Medicare Annual Wellness (AWV) 01/25/2025 01/19/2024, 11/09/2022 RSV Patients Over 60 years OR qualifying ( Patients) (1 - 1-dose 75+ series) 2032 DTaP,Tdap,and Td Vaccines (2 - Td or Tdap) 02/20/2034 02/21/2024 MMR Vaccines Completed 09/12/1997, 08/08/1997 HM Pneumococcal Adult 50+ Completed 11/09/2022 HM Pneumococcal Combined Age 0-49 Discontinued 11/09/2022 HPV Vaccines Aged Out No longer eligi ble based on patient's age to complete this topic Hepatitis A Vaccines Aged Out No long er eligible based on patient's age to complete this topic Hepatitis B Vaccines Aged Out No long er eligible based on patient's age to complete this topic IPV Vaccines Aged Out No longer eligi ble based on patient's age to complete this topic Medical Devices Implanted Type Area First Assistant Device Identifier Shelf Expiration Date Model / Serial / Lot Screw, Cancellous 6.5*30mm - [id number] - [id number] Implanted:Qty: 1 on 05/10/2017 by Ascencion Villanueva DO at [facility] Screw Left: Hip DEPUY [id number] 02/24/2027 1217-30-500 / [id number] / [id number] Screw, Simpson 6.5*25 Bone - [id number] Implanted:Qty: 1 on 07/01/2020 by Ascencion Villanueva DO at [facility] Screw Right: Hip DEPUY 02/24/2030 1217-25-500 / / [id number] Liner, Pinn Altrx Neut 36*60 - [id number] Implanted:Qty: 1 on 07/01/2020 by Ascencion Villanueva DO at [facility] Total Joint Right: Hip DEPUY 08/25/2024 1221-36-060 / / [id number] Cup, Acetab Simpson 60mm - [id number] Implanted:Qty: 1 on 07/01/2020 by Ascencion Villanueva DO at [facility] Total Joint Right: Hip DEPUY 04/27/2030 1217-22-060 / / [id number] Stem, Collared Actis High Sz6 - [id number] Implanted:Qty: 1 on 07/01/2020 by Ascencion Villanueva DO at [facility] Total Joint Right: Hip DEPUY 04/27/2030 1010-12-060 / / [id number] Head, Fem Ceramic +1.5 36mm - [id number] Implanted:Qty: 1 on 07/01/2020 by Ascencion Villanueva DO at [facility] Total Joint Right: Hip DEPUY 05/25/2025 1365-36-310 / / [id number] Cup, Acetab Simpson 60mm - [id number] - [id number] Implanted:Qty: 1 on 05/10/2017 by Ascencion Villanueva DO at [facility] Left: Hip DEPUY 03/27/2027 1217-22-060 / [id number] / [id number] Liner, Pinn Altrx Neut 36*60 - [id number] - [id number] Implanted:Qty: 1 on 05/10/2017 by Ascencion Villanueva DO at [facility] Left: Hip DEPUY [id number] 11/25/2021 1221-36-060 / [id number] / [id number] Stem, Femoral Sz 5 105mm - [id number] - [id number] Implanted:Qty: 1 on 05/10/2017 by Ascencion Villanueva DO at [facility] Left: Hip DEPUY 02/24/2027 1012-04-050 / [id number] / [id number] Head, Fem Ceramic +1.5 36mm - [id number] - [id number] Implanted:Qty: 1 on 05/10/2017 by Ascencion Villanueva DO at [facility] Left: Hip DEPUY [id number] 01/25/2022 1365-36-310 / [id number] / [id number] Cement, Bone Biomet - [id number] Implanted:Qty: 2 on 11/11/2020 by Ascencion Villanueva DO at [facility] Right: Knee Iker 08/26/2023 [id number] / / [id number] Patella, Persona 35mm 9mm - [id number] Implanted:Qty: 1 on 11/11/2020 by Ascencion Villanueva DO at [facility] Right: Knee Iker [id number] 09/29/2028 16-0417-638- 35 / / [id number] Surface, Art Persons 10-12 Gh - [id number] Implanted:Qty: 1 on 11/11/2020 by Ascencion Villanueva DO at [facility] Right: Knee Iker [id number] 02/10/2025 26-3340-378- 10 / / [id number] Tibia, Persona 5' R Sz G - [id number] Implanted:Qty: 1 on 11/11/2020 by Ascencion Villanueva DO at [facility] Right: Knee Iker [id number] 02/23/2030 89-3896-707- / / [id number] Femur, Persona Nehemiah R Sz 11 - [id number] Implanted:Qty: 1 on 11/11/2020 by Ascencion Villanueva DO at [facility] Right: Knee Iker [id number] 02/03/2030 72-4364-800- / / [id number] Femur, Persona Sz 12 L - [id number] Implanted:Qty: 1 on 05/31/2024 by Ascencion Villanueva DO at [facility] Left: Knee Iker 11/02/2033 58-9459-699- 01 / / [id number] Tibia, Psn 0' Spiked Kneel Lft - [id number] Implanted:Qty: 1 on 05/31/2024 by Ascencion Villanueva DO at [facility] Left: Knee Iker 01/27/2034 91-5345-424- 01 / / [id number] Patella, Persona 35mm 9mm - [id number] Implanted:Qty: 1 on 05/31/2024 by Ascencion Villanueva DO at [facility] Left: Knee Iker 12/25/2028 53-9262-066- 35 / / [id number] Cement, Bone Biomet - [id number] Implanted:Qty: 1 on 05/31/2024 by Ascencion Villanueva DO at [facility] Left: Knee Iker 07/25/2026 [id number] / / [id number] Surface, Art Psn L 14mm 12/Gh - [id number] Implanted:Qty: 1 on 05/31/2024 by Ascencion Villanueva DO at [facility] Left: Knee Iker 02/16/2025 86-8990-467- 12 / / [id number] Explanted Type Area First Assistant Device Identifier Shelf Expiration Date Model / Serial / Lot Mary Carmen Villavicencio Qs Tkp 48mm Headed - [id number] Explanted:Qty: 2 on 05/31/2024 at [facility] Screw Left: Knee Iker [id number] 40 -48 / / Procedures Procedure Name Priority Date/Time Associated Diagnosis Comments LIPID PANEL Routine 02/27/2025 5:59 AM PST Hyperlipidemia, unspecified hyperlipidemia type BASIC METABOLIC PANEL Routine 02/27/2025 5:59 AM PST Paroxysmal atrial tachycardia COMPLETE BLOOD COUNT Routine 02/27/2025 5:59 AM PST Paroxysmal atrial tachycardia PROSTATE-SPECIFIC AG Routine 11/09/2022 4:41 PM PDT Welcome to Medicare preventive visit Encounter for screening for malignant neoplasm of prostate from Last 3 Months or Most Recently Relevant to Health Maintenance Results * Complete blood count without diff (02/27/2025 5:59 AM PST) WBC 7.8 3.4 - 10.8 x10E3/uL [facility] 001 RBC 5.56 4.14 - 5.80 x10E6/uL [facility] 001 Hemoglobin 16.8 13.0 - 17.7 g/dL [facility] 001 Hematocrit 50.5 37.5 - 51.0 % [facility] 001 MCV 91 79 - 97 fL [facility] 001 MCH 30.2 26.6 - 33.0 pg [facility] 001 MCHC 33.3 31.5 - 35.7 g/dL [facility] 001 RDW 15.4 11.6 - 15.4 % [facility] 001 Platelet Count 229 150 - 450 x10E3/uL [facility] 001 Blood Venous blood / Unknown 02/27/2025 5:59 AM PST 02/26/2025 9:00 PM PST Narrative [facility] [place] - 02/28/2025 3:08 AM PST Performed at: 01 - [facility] [address], [place] [id number] Manager Behavior: Bob Mendieta MD, Phone: [phone] Della Cloud MD LAB BLOOD ORDERABLES Final R esult [address] [place] [address], [place] [phone] [facility] 001 * (ABNORMAL) Lipid panel (02/27/2025 5:59 AM PST) Cholesterol, Total 192 100 - 199 mg/dL [facility] 001 Triglycerides 109 0 - 149 mg/dL [facility] 001 HDL Cholesterol 44 >39 mg/dL [facility] 001 VLDL Cholesterol 20 5 - 40 mg/dL [facility] 001 LDL Cholesterol 128(H) 0 - 99 mg/dL [facility] 001 Blood Venous blood / Unknown 02/27/2025 5:59 AM PST 02/26/2025 9:00 PM PST N[facility]ative [facility] - 02/28/2025 6:05 AM PST Performed at: 01 - [facility] [address], Suite [facility], [place], [place] [id number] Manager Behavior: Bob Mendieta MD, Phone: [phone] Della Cloud MD LAB BLOOD ORDERABLES Edited Result - Final Performing Organization Address City/[facility]/ZIP Co de Phone Number LAB[address] [address], [place] [phone] [facility] 001 * (ABNORMAL) Basic metabolic panel (02/27/2025 5:59 AM PST) Glucose 131(H) 70 - 99 mg/dL [facility] 001 BUN 20 8 - 27 mg/dL [facility] 001 Creatinine 1.01 0.76 - 1.27 mg/dL [facility] 001 eGFR (CKD-EPI 2020) 82 >59 mL/min/1.7 3 [facility] 001 BUN/Creatinine Ratio 20 10 - 24 [facility] 001 Sodium 141 134 - 144 mmol/L [facility] 001 Potassium 4.8 3.5 - 5.2 mmol/L [facility] 001 Chloride 103 96 - 106 mmol/L [facility] 001 CO2 26 20 - 29 mmol/L [facility] 001 Calcium 9.0 8.6 - 10.2 mg/dL [facility] 001 Blood Venous blood / Unknown 02/27/2025 5:59 AM PST 02/26/2025 9:00 PM PST Narrative [facility] - 02/28/2025 5:09 AM PST Performed at: [place] [address], [place], [place] [id number] Manager Behavior: Bob Mendieta MD, Phone: [phone] Della Cloud MD LAB BLOOD ORDERABLES Final R esult [place] [address] [place] [address], [facility] 001 * (ABNORMAL) Prostate-Specific Ag (11/09/2022 4:41 PM PDT) Pathologist [facility] PSA 4.2(H) 0.0 - 4.0 ng/mL 11/10/2022 6:10 AM PDT [facility] Comment: Rahel ECLIA methodology. According to the [place] [employer], Serum PSA should decrease and remain at undetectable levels after radical prostatectomy. The AUA defines biochemical recurrence as an initial PSA value 0.2 ng/mL or greater followed by a subsequent confirmatory PSA value 0.2 ng/mL or greater. Values obtained with different assay methods or kits cannot be used interchangeably. Results cannot be interpreted as absolute evidence of the presence or absence of malignant disease. Blood Venous blood / Unknown Venipuncture / Unknown 11/09/2022 4:41 PM PDT 11/09/2022 4:41 PM PDT [facility]ative [facility] 11/10/2022 6:10 AM PDT Performed at: [facility] [address], [place], [place] [id number] Manager Behavior: Bob Mendieta MD, Phone: [phone] Yisel Madera DO LAB BLOOD ORDERABLES Final Re sult [facility] [address] [address], from Last 3 Months or Most Recently Relevant to Health Maintenance Insurance MEDICARE PART A AND B [facility] Advance Directives * Full Code (Latest Code Status on File) Date Activated Date Inactivated Comments 05/31/2024 4:15 PM 06/01/2024 2:37 PM Question Answer Comments Discussed the code status with patient and/or fa jossie: No * Full Code Date Activated Date Inactivated Comments 05/31/2024 8:28 AM 05/31/2024 4:15 PM Question Answer Comments Discussed the code status with patient and/or fa jossie: No * Full Code Date Activated Date Inactivated Comments 11/11/2020 11:42 AM 11/12/2020 5:20 PM * Full Code Date Activated Date Inactivated Comments 07/01/2020 9:42 AM 07/02/2020 5:13 PM * Full Code Date Activated Date Inactivated Comments 02/18/2020 5:45 AM 02/18/2020 11:33 AM Care Teams Drill Hand Relationship Specialty Start Date End Date Yisel Madera DO [address] [place] [address] PCP - General Family Medicine 04/22/20
--- OUTSIDE RECORDS SUMMARY | 2025-03-03 18:20 | EXTERNAL MEDICAL SUMMARY RPT | Encounter Summary ---
Author Organization [facility] Address [address] [place] [address] Care Team Providers Care Employee Communications Specialist Name Role Phone SantyYisel donnelly Primary Care Provider [phone] Encounter Details Date Type Department Care Team (Late st Contact Info) Description 02/28/2025 Orders Only [facility] Cardiology [address], [place] [address] Della Cloud MD [address] [place] [address] [address] [place] [address] Paroxysmal atrial tachycardia; Hyperlipidemia, unspecified hyperlipidemia type Social History Tobacco Use Types Packs/Day Years Used Date Smoking Tobacco: Never Smokeless Tobacco: Never Alcohol Use Standard Drinks/Week Comments Yes 1 (1 standard drink = 0.6 oz pure alcohol) maybe 1 glass of wine every other day [facility] Utilities Answer Date Recorded In the past 12 months has [facility] [employer], oil, or water [employer] threatened to shut off services in your [...] any time in the past 12 m [facility], were you homeless or living in a skilled nursing (including now)? 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 Not on file Not on file documented as of this encounter Plan of Treatment Upcoming Encounters Date Type Department Care Team (Late st Contact Info) Description 03/26/2025 11:20 AM PST Office Visit [facility] Cardiology [place] [address] [place] [address], [address] [place] [address] Della Cloud MD [address] [place] [address] [address] [place] [address] 04/30/2025 11:00 AM PST Office Visit [facility] Family Medicine [place] [address] [place] [address] Yisel Madera [address] [place] [address] 05/27/2025 12:00 PM PST Office Visit [facility] - [place] - Sleep Medicine [address] [facility] [address] [place] [address] Marely Gutierrez, [place] [address] [place] [address] documented as of this encounter Procedures Procedure Name Priority Date/Time Associated Diagnosis Comments COMPLETE BLOOD COUNT Routine 02/27/2025 5:59 AM PST Paroxysmal atrial tachycardia LIPID PANEL Routine 02/27/2025 5:59 AM PST Hyperlipidemia, unspecified hyperlipidemia type BASIC METABOLIC PANEL Routine 02/27/2025 5:59 AM PST Paroxysmal atrial tachycardia documented in this encounter Results * (ABNORMAL) Lipid panel (02/27/2025 5:59 AM PST) [facility] Cholesterol, Total 192 100 - 199 mg/dL [facility] 001 Triglycerides 109 0 - 149 mg/dL [facility] 001 HDL Cholesterol 44 >39 mg/dL [facility] 001 VLDL Cholesterol 20 5 - 40 mg/dL [facility] 001 LDL Cholesterol 128(H) 0 - 99 mg/dL [facility] 001 Blood Venous blood / Unknown 02/27/2025 5:59 AM PST 02/26/2025 9:00 PM PST Narrative [facility] [place] - 02/28/2025 6:05 AM PST Performed at: 01 [facility] [address], [place], [place] [id number] [employer]: Bob Mendieta MD, Phone: [phone] Della Cloud MD LAB BLOOD ORDERABLES Edited Result - Final [address] [place] [address], [facility] 001 * (ABNORMAL) Basic metabolic panel (02/27/2025 5:59 AM PST) Pathologist [facility] Glucose 131(H) 70 - 99 mg/dL REFERENCE [...] AM PST 02/26/2025 9:00 PM PST Narrative [facility] - 02/28/2025 5:09 AM PST Performed at: 01 - [address], [address], [place], [place] [id number] [employer]: Bob Mendieta MD, Phone: [phone] Della Cloud MD LAB BLOOD ORDERABLES Final R esult Performing Organization Address [facility]/ZIP Co de Phone Number [address] [address], [facility] 001 * Complete blood count without diff (02/27/2025 5:59 AM PST) Pathologist [facility] WBC 7.8 3.4 - 10.8 x10E3/uL REFERENCE [...] PST 02/26/2025 9:00 PM PST Narrative [facility] [place] - 02/28/2025 3:08 AM PST Performed at: 01 - [facility] [place] [address], [place], [place] [id number] [employer]: Bob Mendieta MD, Phone: [phone] Della Cloud MD LAB BLOOD ORDERABLES Final R esult [facility] [place] [address] [place] [address], [facility] 001 documented in this encounter Visit Diagnoses Diagnosis Paroxysmal atrial tachycardia Paroxysmal supraventricular tachycardia Hyperlipidemia, unspecified hyperlipidemia type documented in this encounter Care Teams Employee Communications Specialist Relationship Specialty Start Date End Date Yisel Madera DO [address] [place] [address] PCP - General Family Medicine 04/22/20 documented as of this encounter
--- OUTSIDE RECORDS SUMMARY | 2025-03-03 18:20 | EXTERNAL MEDICAL SUMMARY RPT | Encounter Summary ---
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 Not on file Not on file documented as of this encounter Plan of Treatment Upcoming Encounters Date Type Department Care Team (Late st Contact Info) Description 03/26/2025 11:20 AM PST Office Visit [facility] Cardiology [place] [address] [place] [address], [address] [place] [address] Della Cloud MD [address] [place] [address] [address] [place] [address] 04/30/2025 11:00 AM PST Office Visit [facility] Medicine [place] [address] [place] [address] iYsel Madera DO [address] [place] [address] 05/27/2025 12:00 PM PST Office Visit [facility] - Sleep Medicine [address] [facility] [address] [place] [address] Marely Gutierrez ARNP [address] [place] [address] documented as of this encounter Procedures Procedure Name Priority Date/Time Associated Diagnosis Comments ECHOCARDIOGRAM COMPLETE Routine 05/30/2020 PVCs (premature ventricular contractions) documented in this encounter Results * ECHOCARDIOGRAM COMPLETE (05/30/2020) Anatomical Region Laterality Modality N/A Ultrasound Della Cloud MD [facility] ECHO PROCEDURES Fany l Result documented in this encounter Visit Diagnoses Diagnosis PVCs (premature ventricular contractions) Other premature beats documented in this encounter Care Teams Machine Sand Mixer Relationship Specialty Start Date End Date Yisel Madera DO [facility] [place] [address] PCP - General Family Medicine 04/22/20 documented as of this encounter
--- OUTSIDE RECORDS SUMMARY | 2025-03-03 18:20 | EXTERNAL MEDICAL SUMMARY RPT | Encounter Summary ---
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 Not on file Not on file documented as of this encounter Plan of Treatment Upcoming Encounters Date Type Department Care Team (Late Contact Info) Description 03/26/2025 11:20 AM PST Office Visit [facility] Cardiology [address], [address] [place] [address] Della Cloud MD [address] [place] [address] [address] [place] [address] 04/30/2025 11:00 AM PST Office Visit [facility] [address] [place] [address] Yisel Madera DO [address] [place] [address] 05/27/2025 12:00 PM PST Office Visit [facility] - Sleep Medicine [address] [facility] [address] [place] [address] Marely Gutierrez ARNP [address] [place] [address] documented as of this encounter Visit Diagnoses Not on filedocumented in this encounter Care Teams Cloud Engagement Partner Relationship Specialty Start Date End Date Yisel Madera DO [address] [place] [address] PCP - General Family Medicine 04/22/20 documented as of this encounter
--- OUTSIDE RECORDS SUMMARY | 2025-03-03 18:20 | EXTERNAL MEDICAL SUMMARY RPT | Encounter Summary ---
Author Organization [facility] Address [address] [place] [address] Care Team Providers Care Bottling Room Worker Name Role Phone Zhen Maderahel Primary Care Provider [phone] Reason for Referral * Diagnostic Imaging (Routine) - Closed Specialty Diagnoses / Procedures Referred By Contac t Referred To Contact Radiology Diagnoses Status post right hip replacement Procedures XR PELVIS WITH LATERAL HIP RIGHT Ascencion Jenkins DO Phone: tel: fax: Referral ID Status Reason Start Date Expiration Date V isits Requested Visits Authorized [id number] Closed Specialty Services Required 08/11/2020 08/06/2021 1 1 Encounter Details Date Type Department Care Team (Late st Contact Info) Description 08/11/2020 Orders Only [facility] Orthopedics [place] [address] [place] [address] Sarahi Sanders MA Status post right hip replacement (Primary Dx) Social History Tobacco Use Types [...] Date 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, 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 Not on file Not on file documented as of this encounter Plan of Treatment Upcoming Encounters Date Type Department Care Team (Late st Contact Info) Description 03/26/2025 11:20 AM PST Office Visit [facility] Cardiology [place] [address] [place] [address], [address] [place] [phone] Della Cloud MD [address] [place] [address] [address] [place], [place] [phone] 04/30/2025 11:00 AM PST Office Visit [facility] Family Medicine [place] [address] [place] [address] Yisel Madera DO [address] [place] [address] 05/27/2025 12:00 PM PST Office Visit [facility] - [place] - Sleep Medicine [address] [facility] [address] [place] [address] Marely Gutierrez ARNP [address] [place], [place] [phone] documented as of this encounter Results * XR PELVIS WITH LATERAL HIP RIGHT (08/12/2020 12:17 PM PDT) Anatomical Region Laterality Modality Right Radiographic Caroline ging 08/12/2020 1:44 PM PDT Narrative 08/12/2020 2:05 PM PDT [place], [place]. [id number] PATIENT NAME: JARVIS AC : 1955 GENDER: M EXAM DATE: 08/12/2020 12:04 ORDERED FROM: SVHRBXR ORDERING PHYSICIAN: ASCENCION JENKINS CC: -- - - - CONTRAST: READING STATION ID: [id number] mGy: PROCEDURE: XR PELVIS WITH LATERAL HIP RIGHT INDICATIONS: hip pain TECHNIQUE: AP pelvis and lateral view of the right hip acquired. COMPARISON: [facility], CR, XR PELVIS 1 OR 2 VIEWS, 07/01/2020, 15:11. [facility], CR, XR PELVIS WITH LATERAL HIP RIGHT, 12/26/2019, 10:49. FINDINGS: Bones: Patient is status post bilateral hip arthroplasty, with hardware components in expected positions. The hip joint appears congruent. The visualized bony structures appear intact. Soft tissues: Overlying postoperative changes are noted. No suspicious soft tissue densities. IMPRESSION: Stable appearance of bilateral hip arthroplasties. Reviewed by: Inder MÉNDEZ Interpreted: Jalil Link MD on 08/12/2020 at 13:44 Transcribed by: SERENA on 08/12/2020 at 13:44 Approved by: Jalil Link M.D. on 08/12/2020 at 14:05 Procedure Note Jalil Link MD - 08/12/2020 [place]. [address] PATIENT NAME: JARVIS AC : 1955 GENDER: Melly EXAM DATE: 08/12/2020 12:04 ORDERED FROM: HRBXR ORDERING PHYSICIAN: ASCENCION JENKINS CC: -- - - - CONTRAST: READING STATION ID: [id number] mGy: PROCEDURE: XR PELVIS WITH LATERAL HIP RIGHT INDICATIONS: hip pain TECHNIQUE: AP pelvis and lateral view of the right hip acquired. COMPARISON: [facility], CR, XR PELVIS 1 OR 2 VIEWS,07/01/2020, 15:11. [facility], CR, XR PELVIS WITH LATERAL HIPRIGHT, 12/26/2019, 10:49. FINDINGS: Bones: Patient is status post bilateral hip arthroplasty, with hardwarecomponents in expected positions. The hip joint appears congruent. Thevisualized bony structures appear intact. Soft tissues: Overlying postoperative changes are noted. No suspicioussoft tissue densities. IMPRESSION: Stable appearance of bilateral hip arthroplasties. Reviewed by: Inder Ford RRA Interpreted: Jalil Link MD on 08/12/2020 at13:44 Transcribed by: SERENA on 08/12/2020 at 13:44 Approved by: Jalil Link M.D. on 08/12/2020 at 14:05 Ascencion Jenkins DO [facility] XR PROCEDURES Final Result documented in this encounter Visit Diagnoses Diagnosis Status post right hip replacement- Primary Status post right hip replacement documented in this encounter Care Teams Bottling Room Worker Relationship Specialty Start Date End Date Yisel Madera DO [address] [place] [phone] PCP - General Family Medicine 04/22/20 documented as of this encounter
--- OUTSIDE RECORDS SUMMARY | 2025-03-03 18:20 | EXTERNAL MEDICAL SUMMARY RPT | Encounter Summary ---
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 * Telephone Encounter - Lorie Castañeda - 08/21/2020 9:09 AM PDT Pt stated his wound is doing better and doesn't need appt for tomorrow 05.28.21 Ask to please cancel appt . Please call if needed @ [phone] Ok to leave detail message documented in this encounter Plan of Treatment Upcoming Encounters Date Type Department Care Team (Late st Contact Info) Description 03/26/2025 11:20 AM PST Office Visit [facility] Cardiology [address], [address] [place] [phone] Della Cloud MD [address] [place] [address] [address] [place], [place] [phone] 04/30/2025 11:00 AM PST Office Visit [facility] Family Medicine [place] [address] [place] [address] Yisel Madera DO [address] [place] [address] 05/27/2025 12:00 PM PST Office Visit [facility] [place] - Sleep Medicine [address] [facility] [address] [place] [address] Marely Gutierrez ARNP [address], [place] [phone] documented as of this encounter Visit Diagnoses Not on filedocumented in this encounter Care Teams Senior Production Supervisor Relationship Specialty Start Date End Date Yisel Madera DO [address] [place] [address] PCP - General Family Medicine 04/22/20 documented as of this encounter
--- OUTSIDE RECORDS SUMMARY | 2025-03-03 18:20 | EXTERNAL MEDICAL SUMMARY RPT | Encounter Summary ---
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 Villanueva Date of Admission: 07/01/2020 Willy Ac 1955 [id number] Impression: Right hip arthritis Plan: The patient would like to proceed with right total hip arthroplasty with anterolateral appraoch. The patient was scheduled for hip replacement surgery 02/18/2020 however upon induction of anesthesia he was found to have irregular heart rhythm and surgery was canceled. The patient has since seen cardiology. He underwent heart monitoring and found to have PVC's and paroxysmal atrial tachycardia. Medication (metoprolol 75 mg qam) and lifestyle changes have decreased weight by 5 lbs. He has been cleared to undergo surgery. The nature of the surgery, alternatives, and [...] leg length inequality, possibility that the prosthesis mayloosen or need to be revised at a later date, and possible need for postoperative blood transfusion. Patient was advised regarding the potential for infection both early and late. The difficulties associated with an infected joint replacement were discussed including the possible need to remove theprosthesis. The patient had opportunity to ask questions. The patient has given his written and verbal consent to undergo the above procedure. Anticoagulation plan: aspirin Torres: no Significant medical history includes paroxysmal atrial tachycardia, PVC's, sleep apnea, obesity, thyroid disorder. Admission status: OPIB. Patient will have routine postop follow up at 2 weeks with PA for wound check and at [address] Villanueva , with xrays. The patient was instructed to stop aspirin and NSAID's 1 week prior to surgery and was given written instructions and the materials for pre-op skin prep. LEFT HIP IMPLANTS: Femur = 5 Tri-lock Cup = 60 mm Liner = 36 neutral Head = 36 +1 ceramic Chief Complaint Patient presents with • Right Hip - Pre-op Exam HPI: The patient is a 64 y.o. 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 • PVC (premature ventricular contraction) • Sleep apnea Uses CPAP Surgical History Past Surgical History: Procedure Laterality Date • CA TOTAL HIP ARTHROPLASTY Left 05/10/2017 Procedure: LEFT ANTERIOR TOTAL HIP ARTHROPLASTY; Surgeon: Ascencion Villanueva DO; Location: [facility]; Service: Orthopedics • SHOULDER ARTHROSCOPY Left 04/13/2016 With SAD, distal clavical resection • SHOULDER ARTHROSCOPY Right 04/15/2015 w bicepes tendonesis No Known Allergies Current Medications Current Outpatient Medications Medication Sig [...] • 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, 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 [employer] Tobacco Use • Smoking status: Never Smoker • Smokeless tobacco: Never Used Substance and Sexual Activity • Alcohol use: Yes Comment: 2-3 drinks weekly • Drug use: Not Currently Types: Marijuana Comment: inhale • Sexual activity: Defer Other Topics Concern • Not on file Social History 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 [employer] Social Determinants of Health Financial Resource Strain: • Difficulty of Paying Living Expenses: Food Insecurity: • Worried About Running Out of Food in the Last Year: • Ran Out of Food in the Last Year: Transportation Needs: • Lack of Transportation (Medical): • Lack of Transportation (Non-Medical): Physical Activity: • Days of Exercise per Week: • Minutes of Exercise per Session: Stress: • Feeling of Stress : Social Connections: • Frequency of Communication with Friends and Family: • Frequency of Social Gatherings with Friends and Family: • Attends Orthodox Services: • Active Member of Clubs or Organizations: • Attends Club or Organization Meetings: • Marital Status: Review of Systems Constitutional: Negative for fatigue, [...] Negative for easy bruising Physical Exam: BP 122/78 | Pulse (!) 57 | Temp (!) 35.5 °C (95.9 °F) (Temporal) | Ht 1.854 m | Wt 124 kg | SpO2 97% | BMI 36.16 kg/m² The patient is a 65 y.o. [...] space narrowing, osteophytes, subchondral sclerosis, cystic changes documented in this encounter Plan of Treatment Upcoming Encounters Date Type Department Care Team (Late st Contact Info) Description 03/26/2025 11:20 AM PST Office Visit [facility] Cardiology [place] [address] [place] [address], [address] [place] [phone] Della Cloud MD [address] [place], [place] [id number] 04/30/2025 11:00 AM PST Office Visit [facility] Family Medicine [place] [address] [place] [phone] Yisel Madera DO [address] [place] [address] 05/27/2025 12:00 PM PST Office Visit [facility] - [place] - Sleep Medicine [address] [facility] [address] [place] [phone] Marely Gutierrez ARNP [address] [place], [place] [phone] documented as of this encounter Visit Diagnoses Not on filedocumented in this encounter Care Teams Corsetier Relationship Specialty Start Date End Date Yisel Madera DO [address] [place] [phone] PCP - General Family Medicine 04/22/20 documented as of this encounter"
--- OUTSIDE RECORDS SUMMARY | 2025-03-03 18:21 | EXTERNAL MEDICAL SUMMARY RPT | Encounter Summary ---
Author Organization [facility] Address [address] [place] [address] Care Team Providers Care Clinical Coordinator Name Role Phone Yisel Madera Primary Care Provider [phone] Reason for Visit * Reason Onset Date Comments referrals 02/18/2020 Encounter Details Date Type Department Care Team (Late st Contact Info) Description 02/18/2020 Telephone [facility] Cardiology [address], [place] [phone] Della Cloud MD [address] [place] [address] [address] [place], [place] [phone] referrals Social History Tobacco Use Types Packs/Day Years [...] Orientation Straight 05/31/2024 4: 43 PM PST COVID-19 Exposure Response Date Recorded In the last month, have you been in contact with someone who was confirmed or suspected to have Coronavirus / COVID-19? No / Unsure 02/18/2020 6:00 AM PST documented as of this encounter Functional Status documented as of this encounter Miscellaneous Notes * Telephone Encounter - Shelia Chaves - 03/03/2020 3:36 PM PST Done, pt informed and will see you 03/26. Arrythmia informed of your reading holter * Telephone Encounter - Della Cloud MD - 03/03/2020 12:12 PM PST Ok. I would have liked to see him before holter to make holter or zio were appropriate for him. Canyou make me the reader for the holter? Move up the appt so that we can see him soon after his holter results come back. Thanks. * Telephone Encounter - Shelia Chaves - 03/03/2020 11:40 AM PST Do you want him sooner than what was sched when he got his monitor on Tuesday, for 04/21? * Telephone Encounter - Shelia Chaves - 03/03/2020 11:37 AM PST Done, fyi holter was done 02/28 * Telephone Encounter - Della Cloud MD - 02/29/2020 4:44 PM PST schedule patient for 03/05 as VIVIAN to see. Will order appropriate monitor after clinic visit. * Telephone Encounter - Shelia Chaves - 02/28/2020 3:[address] Cloud per your previous request, letting you know we got the referral from PCP. It looks like the got auth for a holter too if you want that prior. * Telephone Encounter - Viry Robbins - 02/28/2020 2:11 PM PST I recieved an auth for consult and holter monitor. I entered the referrals into epic. * Telephone Encounter - Shelia Chaves - 02/19/2020 9:40 AM PST Ortho and patient are taking care of this per [facility] protocol. I will check [facility] web site in a few days to see if auth there yet * Telephone Encounter - Della Cloud MD - 02/18/2020 7:50 PM PST Shelia: please obtain consult from PCP for "possible Afib noted on anesthesia monitor?" Let me know when you have the consult so that I can schedule it. Thanks. * Telephone Encounter - Della Cloud MD - 02/18/2020 7:49 PM PST ----- Message from Ascencion Galvez MD sent at 02/18/2020 8:51 AM PST ----- Dr. Cloud, Thanks for the help with formulating plan for our scheduled hip surgery pt Willy Ac, whom we cancelled today for what appeared to be new onset afib with frequent PVCs, whom converted to NSR with frequent PVCs and is now asymptomatic. We've discussed with his the plan to see his PCP Dr. Abdoulaye Humphreys at [facility] and get referral to you. Many thanks, Nikos Galvez, Anesthesia documented in this encounter Plan of Treatment Upcoming Encounters Date Type Department Care Team (Late st Contact Info) Description 03/26/2025 11:20 AM PST Office Visit [facility] Cardiology [address], [address] [place] [address] Della Cloud MD [address] [place] [address] [address] [place] [address] 04/30/2025 11:00 AM PST Office Visit [facility] [address] [place] [address] Yisel Madera DO [address] [place] [address] 05/27/2025 12:00 PM PST Office Visit [facility] - Sleep Medicine [address] [facility] [address] [place] [address] Marely Gutierrez ARNP [address] [place] [address] documented as of this encounter Visit Diagnoses Not on filedocumented in this encounter Care Teams Clinical Coordinator Relationship Specialty Start Date End Date Yisel Madera DO [address] [place] [address] PCP - General Family Medicine 04/22/20 documented as of this encounter
--- OUTSIDE RECORDS SUMMARY | 2025-03-03 18:21 | EXTERNAL MEDICAL SUMMARY RPT | Encounter Summary ---
Author Organization [facility] Address [address] [place] [address] Care Team Providers Care Heating Element Builder Name Role Phone SantyYisel donnelly Primary Care Provider [phone] Encounter Details Date Type Department Care Team (Late st Contact Info) Description 10/18/2023 Abstract [facility] Cardiology [place] [id number] [facility], [place] [address] Mychart, Generic Provider [address] [place] [address] Social History Tobacco Use Types Packs/Day Years Used Date Smoking Tobacco: Never Smokeless Tobacco: Never Alcohol Use Standard Drinks/Week Comments Yes 0 (1 standard drink = 0.6 oz pure alcohol) maybe 1 glass of wine every other day AUDIT-C Answer Date Recorded Q1: How often do you have a drink containing alc ohol? 2-4 times a month 11/09/2022 Q2: How many drinks containi ng alcohol do you have on a typical day when you are drinking? 1 or 2 11/09/2022 Q3: How often do you have si x or more drinks on one occasion? 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[employer] Not on file Not on file Not on file documented as of this encounter Plan of Treatment Upcoming Encounters Date Type Department Care Team (Late st Contact Info) Description 03/26/2025 11:20 AM PST Office Visit [facility] Cardiology [place] [address] [place] [address], [address] [place] [phone] Della Cloud MD [address] [place], [place] [phone] 04/30/2025 11:00 AM PST Office Visit [facility] Family Medicine [place] [address] [place] [phone] Yisel Madera DO [address] [place] [address] 05/27/2025 12:00 PM PST Office Visit [facility] - [place] - Sleep Medicine [address] [facility] [address] [place] [phone] Marely Gutierrez, [place] [address] [place], [place] [phone] documented as of this encounter Visit Diagnoses Not on filedocumented in this encounter Care Teams Heating Element Builder Relationship Specialty Start Date End Date Yisel Madera DO [address] [place] [address] PCP - General Family Medicine 04/22/20 documented as of this encounter
--- OUTSIDE RECORDS SUMMARY | 2025-03-03 18:21 | EXTERNAL MEDICAL SUMMARY RPT | Encounter Summary ---
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 Not on file Not on file documented as of this encounter Plan of Treatment Upcoming Encounters Date Type Department Care Team (Late st Contact Info) Description 03/26/2025 11:20 AM PST Office Visit [facility] Cardiology [place] [address] [place] [address], [address] [place] [phone] Della Cloud MD [address] [place], [place] [phone] 04/30/2025 11:00 AM PST Office Visit [facility] Family Medicine [place] [address] [place] [phone] Yisel Madera DO [address] [place] [address] 05/27/2025 12:00 PM PST Office Visit [facility] [place] - Sleep Medicine [address] [facility] [address] [place] [phone] Marely Gutierrez ARNP [address] [place], [place] [phone] documented as of this encounter Visit Diagnoses Not on filedocumented in this encounter Care Teams Java Web Developer Relationship Specialty Start Date End Date Yisel Madera DO [facility] [place] [phone] PCP - General Family Medicine 04/22/20 documented as of this encounter
--- OUTSIDE RECORDS SUMMARY | 2025-03-03 18:21 | EXTERNAL MEDICAL SUMMARY RPT | Encounter Summary ---
Author Organization [facility] Address [address] [place] [address] Care Team Providers Care Licensed Massage Therapist Name Role Phone SantyYisel elizabeth Primary Care Provider [phone] Encounter Details Date Type Department Care Team (Late st Contact Info) Description 12/09/2023 Abstract [facility] - Sleep Medicine [address] [facility] [address] [place] [address] Marely Gutierrez, TRUCK DRIVER TEAMSTER [address] 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 Not on file Not on file documented as of this encounter Plan of Treatment Upcoming Encounters Date Type Department Care Team (Late st Contact Info) Description 03/26/2025 11:20 AM PST Office Visit [facility] Cardiology [place] [address] [place] [address], [address] [place] [phone] Della Cloud MD [address] [place], [place] [phone] 04/30/2025 11:00 AM PST Office Visit [facility] Family Medicine [place] [address] [place] [phone] Yisel Madera DO [address] [place] [address] 05/27/2025 12:00 PM PST Office Visit [facility] - [place] - Sleep Medicine [address] [facility] [address] [place] [phone] Marely Gutierrez ARNP [address] [place], [place] [phone] documented as of this encounter Visit Diagnoses Not on filedocumented in this encounter Care Teams Licensed Massage Therapist Relationship Specialty Start Date End Date Yisel Madera DO [facility] [place] [phone] PCP - General Family Medicine 04/22/20 documented as of this encounter
--- OUTSIDE RECORDS SUMMARY | 2025-03-03 18:21 | EXTERNAL MEDICAL SUMMARY RPT | Encounter Summary ---
Author Organization [facility] Address [address] [place] [address] Care Team Providers Care Job Coach Name Role Phone Yisel Madera Primary Care Provider [phone] Reason for Visit * Reason Comments Med Refill Encounter Details Date Type Department Care Team (Late st Contact Info) Description 01/03/[address] 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 documented in this encounter Plan of Treatment Upcoming Encounters Date Type Department Care Team (Late st Contact Info) Description 03/26/2025 11:20 AM PST Office Visit [facility] Cardiology [address], [address] [place] [phone] Della Cloud MD [address] [place] [address] [address] [place], [place] [phone] 04/30/2025 11:00 AM PST Office Visit [facility] Family Medicine [place] [address] [place] [phone] Yisel Madera DO [address] [place] [phone] 05/27/2025 12:00 PM PST Office Visit [facility] - [place] - Sleep Medicine [address] [facility] [address] [place] [phone] Marely Gutierrez ARNP [address] [place], [place] [phone] documented as of this encounter Visit Diagnoses Not on filedocumented in this encounter Care Teams Job Coach Relationship Specialty Start Date End Date Yisel Madera DO [address] [place] [phone] PCP - General Family Medicine 04/22/20 documented as of this encounter
--- OUTSIDE RECORDS SUMMARY | 2025-03-03 18:21 | EXTERNAL MEDICAL SUMMARY RPT | Encounter Summary ---
Author Organization [facility] Address [address] [place] [address] Care Team Providers Care Liquor Gallery Operator Name Role Phone SantyYisel Primary Care Provider [phone] Reason for Visit * Reason Onset Date Comments I cardiology update 02/29/2020 Encounter Details Date Type Department Care Team (Late st Contact Info) Description 02/29/2020 Telephone [facility] Orthopedics [place] [address] [place] [address] Ascencion Villanueva DO [address] [address] FYI cardiology update Social History Tobacco Use Types Packs/Day Years [...] AM PST documented as of this encounter Miscellaneous Notes * Telephone Encounter - Nicole Austin MA - 03/03/2020 9:00 AM PST Spoke with patient. Per Dr. Villanueva, we will need to wait to hear from cardiology before proceeding with surgery. * Telephone Encounter - Anuja Person - 02/29/2020 2:38 PM PST Pt GEMA called to FYI Dr Villanueva Pt is wearing holter monitor for next 24 hours and the soonest follow up appt with Dr Cloud is scheduled for 04/21/2020 Please adv. documented in this encounter Plan of Treatment Upcoming Encounters Date Type Department Care Team (Late st Contact Info) Description 03/26/2025 11:20 AM PST Office Visit [facility] Cardiology [place] [address] [place] [address], [address] [place] [phone] Della Cloud MD [address] [place], [place] [phone] 04/30/2025 11:00 AM PST Office Visit [facility] Family Medicine [place] [address] [place] [phone] Yisel Madera DO [address] [place] [phone] 05/27/2025 12:00 PM PST Office Visit [facility] - [place] - Sleep Medicine [address] [facility] [address] [place] [phone] Marely Gutierrez ARNP [address] [place], [place] [phone] documented as of this encounter Visit Diagnoses Not on filedocumented in this encounter Care Teams Liquor Gallery Operator Relationship Specialty Start Date End Date Yisel Madera DO [address] [place] [phone] PCP - General Family Medicine 04/22/20 documented as of this encounter
--- OUTSIDE RECORDS SUMMARY | 2025-03-03 18:21 | EXTERNAL MEDICAL SUMMARY RPT | Encounter Summary ---
Author Organization [facility] Address [address] [place] [address] Care Team Providers Care Mash Filter Operator Name Role Phone SantyYisel donnelly Primary Care Provider [phone] Encounter Details Date Type Department Care Team (Late st Contact Info) Description 05/02/2024 Abstract [facility] - Sleep Medicine [address] [facility] [address] [place] [address] Marely Gutierrez, MAINSPRING REVERSE WINDER [address] 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[employer] Not on file Not on file Not on file documented as of this encounter Plan of Treatment Upcoming Encounters Date Type Department Care Team (Late st Contact Info) Description 03/26/2025 11:20 AM PST Office Visit [facility] Cardiology [place] [address] [place] [address], [address] [place] [phone] Della Cloud MD [address] [place] [address] 04/30/2025 11:00 AM PST Office Visit [facility] Family Medicine [place] [address] [place] [phone] Yisel Madera DO [address] [place] [address] 05/27/2025 12:00 PM PST Office Visit [facility] [place] - Sleep Medicine [address] [facility] [address] [place] [phone] Marely Gutierrez ARNP [address] [place], [place] [phone] documented as of this encounter Visit Diagnoses Not on filedocumented in this encounter Care Teams Mash Filter Operator Relationship Specialty Start Date End Date Yisel Madera DO [address] [place] [phone] PCP - General Family Medicine 04/22/20 documented as of this encounter
--- OUTSIDE RECORDS SUMMARY | 2025-03-03 18:21 | EXTERNAL MEDICAL SUMMARY RPT | Encounter Summary ---
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 Answer Date of Assessment Author Yes, as much as I wanted 01/18/2024 4:32 PM PDT Mychart, Generic * During the past four weeks, what was the hardest physical activity you could do for at least two minutes? Answer Date of Assessment Author Very heavy 01/18/2024 4:32 PM PDT Mychart, Generic * During the past four weeks, how would you rate your health in general? Answer Date of Assessment Author Very good 01/18/2024 4:32 PM PDT Mychart, Generic * How have things been going for you during the past four weeks? Answer Date of Assessment Author Very well - could hardly be better 01/18/2024 4: 32 PM PDT Mychart, Generic * Are you having difficulties driving your car? Answer Date of Assessment Author No 01/18/2024 4:32 PM PDT Mychart, Generic * Do you always fasten your seat belt when you are in a car? Answer Date of Assessment Author Yes, always 01/18/2024 4:32 PM PDT Mychart, Generic * Falling or dizzy when standing up Answer Date of Assessment Author Never 01/18/2024 4:32 PM PDT Mychart, Generic * Sexual problems Answer Date of Assessment Author Never 01/18/2024 4:32 PM PDT Mychart, Generic * Trouble eating well Answer Date of Assessment Author Never 01/18/2024 4:32 PM PDT Mychart, Generic * Problems using the telephone Answer Date of Assessment Author Never 01/18/2024 4:32 PM PDT Mychart, Generic * Tiredness or fatigue Answer Date of Assessment Author Seldom 01/18/2024 4:32 PM PDT Mychart, Generic * Are you a smoker? Answer Date of Assessment Author No 01/18/2024 4:32 PM PDT Mychart, Generic * Do you exercise for about 20 minutes three or more days a week? Answer Date of Assessment Author No, I usually do not exercise this much 01/18/20 4:32 PM PDT Mychart, Generic * Have you been given any information to help you with hazards in your house that might hurt you? Answer Date of Assessment Author No 01/18/2024 4:32 PM PDT Mychart, Generic * Have you been given any information to help you with keeping track of your medications? Answer Date of Assessment Author No 01/18/2024 4:32 PM PDT Mychart, Generic * Medication compliance Answer Date of Assessment Author I always take them as prescribed 01/18/2024 4:32 PM PDT Mychart, Generic * How confident are you that you can control and manage most of your health problems? Answer Date of Assessment Author Very confident 01/18/2024 4:32 PM PDT Mychart, Generic * What is your race? (Click all that apply) Answer Date of Assessment Author White 01/18/2024 4:32 PM PDT Mychart, Generic * Do you need assistance with the following activities? Answer Date of Assessment Author None of these apply to me. 01/18/2024 4:32 PM PD T Mychart, Generic * AUDIT-C Score Answer Date of Assessment Author 2 01/18/2024 4:32 PM PDT Mychart, Generic * Q1: How often do you have a drink containing alcohol? Answer Date of Assessment Author 2-4 times a month 01/18/2024 4:32 PM PDT Mychart , Generic * Q2: How many drinks containing alcohol do you have on a typical day when you are drinking? Answer Date of Assessment Author 1 or 2 01/18/2024 4:32 PM PDT Mychart, Generic * Q3: How often do you have six or more drinks on one occasion? Answer Date of Assessment Author Never 01/18/2024 4:32 PM PDT Mychart, Generic * Audit-C Score Answer Date of Assessment Author 5 01/18/2024 4:32 PM PDT Mychart, Generic documented as of this encounter Mental Status * Word Recall Answer Entry Date Author 3 01/19/2024 2:09 PM PDT Neeraj Mayes MA * Clock Draw Answer Entry Date Author 2 01/19/2024 2:09 PM Neeraj Huddleston MA * Total Score Answer Entry Date Author 5 01/19/2024 2:09 PM Neeraj Huddleston MA documented in this encounter Plan of Treatment Upcoming Encounters Date Type Department Care Team (Late st Contact Info) Description 03/26/2025 11:20 AM PST Office Visit [facility] Cardiology [place] [address] [place] [address], [address] [place] [phone] Della Cloud MD [address] [place] [address] [address] [place] [address] 04/30/2025 11:00 AM PST Office Visit [facility] Family Medicine [place] [address] [place] [phone] Yisel Madera DO [address] [place] [address] 05/27/2025 12:00 PM PST Office Visit [facility] - [place] - Sleep Medicine [address] [facility] [address] [place] [phone] Marely Gutierrez ARNP [address] [place], [place] [phone] documented as of this encounter Visit Diagnoses Not on filedocumented in this encounter Care Teams Livery Car Driver Relationship Specialty Start Date End Date Yisel Madera DO [facility] [place] [phone] PCP - General Family Medicine 04/22/20 documented as of this encounter
--- OUTSIDE RECORDS SUMMARY | 2025-03-03 18:21 | EXTERNAL MEDICAL SUMMARY RPT | Encounter Summary ---
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 file Not on file Not on file documented as of this encounter Plan of Treatment Upcoming Encounters Date Type Department Care Team (Late st Contact Info) Description 03/26/2025 11:20 AM PST Office Visit [facility] Cardiology [place] [address], [address] [place] [address] Della Cloud MD [address] [place] [address] 04/30/2025 11:00 AM PST Office Visit [facility] Family Medicine [place] [address] [place] [address] Yisel Madera DO [address] [place] [address] 05/27/2025 12:00 PM PST Office Visit [facility] - [place] - Sleep Medicine [address] [facility] [address] [place] [address] Marely Gutierrez ARNP [address] [place] [address] documented as of this encounter Procedures Procedure Name Priority Date/Time Associated Diagnosis Comments COMPLETE BLOOD COUNT WITH DIFF RESULT Routine 09/20/2022 7:24 AM PDT PVCs (premature ventricular contractions) COMPLETE BLOOD COUNT WITH DIFF Routine 09/20/2022 7:24 AM PDT PVCs (premature ventricular contractions) LIPID PANEL Routine 09/20/2022 7:24 AM PDT PVCs (premature ventricular contractions) BASIC METABOLIC PANEL Routine 09/20/2022 7:24 AM PDT PVCs (premature ventricular contractions) documented in this encounter Results * (ABNORMAL) Lipid panel (Fasting) (09/20/2022 7:24 AM PDT) Cholesterol, Total 199 100 - 199 mg/dL [facility] 001 Triglycerides 132 0 - 149 mg/dL [facility] HDL Cholesterol 46 >39 mg/dL [facility] 001 VLDL Cholesterol 24 5 - 40 mg/dL [facility] LDL Cholesterol 129(H) 0 - 99 mg/dL [facility] 001 Blood Venous blood / Unknown 09/20/2022 7:24 AM PDT 09/19/2022 9:00 PM PDT Narrative [facility] - 09/21/2022 4:07 AM PDT Performed at: [address] [id number] Wind Energy Project Manager: Bob Mendieta MD, Phone: [phone] Della Cloud MD LAB BLOOD ORDERABLES Final R esult Performing Organization Address [facility]/State/ZIP Co de Phone Number [id number] [address], [facility] * (ABNORMAL) Basic Metabolic Panel Expires 12 Months (09/20/2022 7:24 AM PDT) Pathologist [facility] Glucose 117(H) 70 - 99 mg/dL [facility] BUN 17 8 - 27 mg/dL [facility] Creatinine 0.86 0.76 - 1.27 mg/dL [facility] 001 eGFR (CKD-EPI 2020) 96 >59 mL/min/1.7 3 [facility] 001 BUN/Creatinine Ratio 20 10 - 24 [facility] 001 Sodium 142 134 - 144 mmol/L [facility] 001 Potassium 4.7 3.5 - 5.2 mmol/L [facility] 001 Chloride 104 96 - 106 mmol/L [facility] 001 CO2 23 20 - 29 mmol/L [facility] 001 Calcium 9.1 8.6 - 10.2 mg/dL [facility] 001 Blood Venous blood / Unknown 09/20/2022 7:24 AM PDT 09/19/2022 9:00 PM PDT Narrative [facility] - 09/21/2022 3:08 AM PDT Performed at: [facility] [id number] Wind Energy Project Manager: Bob Mendieta MD, Phone: [phone] Della Cloud MD LAB BLOOD ORDERABLES Final R esult [facility] [address] [place] [address], [facility] 001 * Complete blood count with diff (09/20/2022 7:24 AM PDT) Pathologist [facility] WBC 6.0 3.4 - 10.8 x10E3/uL [facility] 001 RBC 4.90 4.14 - 5.80 x10E6/uL [facility] 001 Hemoglobin 15.1 13.0 - 17.7 g/dL [facility] 001 Hematocrit 43.9 37.5 - 51.0 % [facility] 001 MCV 90 79 - 97 fL [facility] 001 MCH 30.8 26.6 - 33.0 pg [facility] 001 MCHC 34.4 31.5 - 35.7 g/dL [facility] 001 RDW 14.0 11.6 - 15.4 % [facility] 001 Platelet Count 223 150 - 450 x10E3/uL [facility] % Neutrophils 71 Not Estab. % [facility] % Lymphocytes 16 Not Estab. % [facility] % Monocytes 8 Not Estab. % [facility] % Eosinophils 3 Not Estab. % [facility] % Basophils 1 Not Estab. % [facility] 001 Absolute Neutrophils 4.3 1.4 - 7.0 x10E3/uL [facility] 001 Absolute Lymphocytes 1.0 0.7 - 3.1 x10E3/uL [facility] 001 Absolute Monocytes 0.5 0.1 - 0.9 x10E3/uL [facility] 001 Absolute Eosinophils 0.2 0.0 - 0.4 x10E3/uL [facility] 001 Absolute Basophils 0.1 0.0 - 0.2 x10E3/uL [facility] % Immature Granulocytes 1 Not Estab. % [facility] 001 Abs. Immature Granulocytes 0.0 0.0 - 0.1 x10E3/uL [facility] 001 Blood Venous blood / Unknown 09/20/2022 7:24 AM PDT 09/19/2022 9:00 PM PDT Narrative [facility] - 09/21/2022 2:07 AM PDT Performed at: 01 - [facility] [place] [address], [place], [place] [id number] Wind Energy Project Manager: Bob Mendieta MD, Phone: [phone] Della Cloud MD LAB BLOOD ORDERABLES Final R esult [facility] [address] [place] [address], [facility] 001 documented in this encounter Visit Diagnoses Diagnosis PVCs (premature ventricular contractions) Other premature beats documented in this encounter Care Teams Programming Director Relationship Specialty Start Date End Date Yisel Madera DO [address] [place] [phone] PCP - General Family Medicine 04/22/20 documented as of this encounter
--- OUTSIDE RECORDS SUMMARY | 2025-03-03 18:21 | EXTERNAL MEDICAL SUMMARY RPT | Encounter Summary ---
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 Not on file Not on file documented as of this encounter Plan of Treatment Upcoming Encounters Date Type Department Care Team (Late st Contact Info) Description 03/26/2025 11:20 AM PST Office Visit [facility] Cardiology [place] [address] [place] [address], [address] [place] [phone] Della Cloud MD [address] [place] [address] [address] [place], [place] [phone] 04/30/2025 11:00 AM PST Office Visit [facility] Family Medicine [place] [address] [place] [phone] Yisel Madera DO [address] [place] [phone] 05/27/2025 12:00 PM PST Office Visit [facility] - [place] - Sleep Medicine [address] [facility] [address] [place] [phone] Marely Gutierrez ARNP [address] [place], [place] [phone] documented as of this encounter Procedures Procedure Name Priority Date/Time Associated Diagnosis Comments LIPID PANEL Routine 12/19/2023 10:24 AM PDT Hyperlipidemia, unspecified hyperlipidemia type documented in this encounter Results * (ABNORMAL) Lipid panel (12/19/2023 10:24 AM PDT) Cholesterol, Total 211(H) 100 - 199 mg/dL [facility] 001 Triglycerides 166(H) 0 - 149 mg/dL [facility] 001 HDL Cholesterol 46 >39 mg/dL REFE R[facility] 001 VLDL Cholesterol 30 5 - 40 mg/dL [facility] 001 LDL Cholesterol 135(H) 0 - 99 mg/dL [facility] 001 Blood Venous blood / Unknown 12/19/2023 10:24 AM PDT 12/18/2023 9:00 PM PDT Narrative [facility] [place] - 12/20/2023 3:10 AM PDT Performed at: 01 - [facility] [address] [place] [address], [place], [place] [id number] Industrial Gas Service Helper: Bob Mendieta MD, Phone: [phone] Specimen Comment: A courtesy copy of this report has been sent to [phone] us Della Cloud MD LAB BLOOD ORDERABLES Final R esult [facility] [address] [phone], [facility] 001 documented in this encounter Visit Diagnoses Diagnosis Hyperlipidemia, unspecified hyperlipidemia type documented in this encounter Care Teams Amalgamator Relationship Specialty Start Date End Date Yisel Madera DO [address] [place] [address] PCP - General Family Medicine 04/22/20 documented as of this encounter
--- OUTSIDE RECORDS SUMMARY | 2025-03-03 18:21 | EXTERNAL MEDICAL SUMMARY RPT | Encounter Summary ---
Author Organization [facility] [place] [facility] Address [address] [place] [address] Care Team Providers Care Medical Billing Associate Name Role Phone Yisel Madera Primary Care Provider [phone] Encounter Details Date Type Department Care Team (Late st Contact Info) Description 11/12/2022 Orders Only [facility] Cardiology [address], [place] [address] eDlla Cloud MD [address] [place] [address] [address] [place], [place] [phone] Elevated PSA, less than 10 ng/ml (Primary Dx); PVCs (premature ventricular contractions) Social History Tobacco Use Types Packs/Day Years Used Date Smoking Tobacco: Never Smokeless Tobacco: Never Alcohol Use Standard Drinks/Week Comments Not Currently 0 (1 standard drink = 0.6 oz pur e alcohol) STOPPED 2019 AUDIT-C Answer Date Recorded Q1: How often [...] Date 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, 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 Not on file Not on file documented as of this encounter Plan of Treatment Upcoming Encounters Date Type Department Care Team (Late st Contact Info) Description 03/26/2025 11:20 AM PST Office Visit [facility] Cardiology [place] [address] [place] [address], [address] [place] [phone] Della Cloud MD [address] [place] [address] [address] [place], [place] [phone] 04/30/2025 11:00 AM PST Office Visit [facility] Family Medicine [place] [address] [place] [phone] Yisel Madera DO [address] [place] [address] 05/27/2025 12:00 PM PST Office Visit [facility] - [place] - Sleep Medicine [address] [facility] [address] [place] [phone] Marely Gutierrez ARNP [address] [place], [place] [phone] documented as of this encounter Procedures Procedure Name Priority Date/Time Associated Diagnosis Comments NM CARDIAC STRESS TEST PHARMACOLOGICAL Routine 11/02/2022 PVCs (premature ventricular contractions) documented in this encounter Results * NM CARDIAC STRESS TEST PHARMACOLOGICAL (11/02/2022) Anatomical Region Laterality Modality N/A Nuclear Medicine Della Cloud MD [facility] NM PROCEDURES Final Result documented in this encounter Visit Diagnoses Diagnosis Elevated PSA, less than 10 ng/ml- Primary PVCs (premature ventricular contractions) Other premature beats documented in this encounter Care Teams Medical Billing Associate Relationship Specialty Start Date End Date Yisel Madera DO [address] [place] [address] PCP - General Family Medicine 04/22/20 documented as of this encounter
--- OUTSIDE RECORDS SUMMARY | 2025-03-03 18:21 | EXTERNAL MEDICAL SUMMARY RPT | Encounter Summary ---
Author Organization [facility] Address [address] [place] [address] Care Team Providers Care Manager Home Improvement Name Role Phone Yisel Madera DO Primary Care Provider [phone] Encounter Details Date Type Department Care Team (Late st Contact Info) Description 08/12/2023 Abstract [facility] Sleep Clinic [address] [facility], [address] [place] [address] Dexter Jimenez MD [address] 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 Not on file Not on file documented as of this encounter Plan of Treatment Upcoming Encounters Date Type Department Care Team (Late st Contact Info) Description 03/26/2025 11:20 AM PST Office Visit [facility] Cardiology [place] [address] [place] [address], [address] [place] [phone] Della Cloud MD [address] [place] [address] [address] [place] [address] 04/30/2025 11:00 AM PST Office Visit [facility] Family Medicine [place] [address] [place] [phone] Yisel Madera DO [address] [place] [address] 05/27/2025 12:00 PM PST Office Visit [facility] - [place] - Sleep Medicine [address] [facility] [address] [place] [phone] Marely Gutierrez ARNP [address] [place], [place] [phone] documented as of this encounter Visit Diagnoses Not on filedocumented in this encounter Care Teams Manager Home Improvement Relationship Specialty Start Date End Date Yisel Madera DO [address] [place] [phone] PCP - General Family Medicine 04/22/20 documented as of this encounter
--- OUTSIDE RECORDS SUMMARY | 2025-03-03 18:21 | EXTERNAL MEDICAL SUMMARY RPT | Encounter Summary ---
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 [employer] Not on file Not on file Not on file documented as of this encounter Plan of Treatment Upcoming Encounters Date Type Department Care Team (Late st Contact Info) Description 03/26/2025 11:20 AM PST Office Visit [facility] Cardiology [place] [address] [place] [address], [address] [place] [phone] Della Cloud MD [address] [place] [address] 04/30/2025 11:00 AM PST Office Visit [facility] Family Medicine [place] [address] [place] [phone] Yisel Madera DO [address] [place] [address] 05/27/2025 12:00 PM PST Office Visit [facility] - [place] - Sleep Medicine [address] [facility] [address] [place] [phone] Marely Gutierrez ARNP [address] [place], [place] [phone] documented as of this encounter Visit Diagnoses Not on filedocumented in this encounter Care Teams Animal Nursery Worker Relationship Specialty Start Date End Date Yisel Madera DO [address] [place] [phone] PCP - General Family Medicine 04/22/20 documented as of this encounter
--- OUTSIDE RECORDS SUMMARY | 2025-03-03 18:21 | EXTERNAL MEDICAL SUMMARY RPT | Encounter Summary ---
Author Organization [facility] Address [address] [place] [address] Care Team Providers Care Detonator Assembler Name Role Phone SantyYisel elizabeth Primary Care Provider [phone] Reason for Visit * Reason Comments Med Refill Encounter Details Date Type Department Care Team (Late st Contact Info) Description 06/02/2024 Refill [facility] Orthopedics and Sports Medicine [address] [phone] Sangita Kemp PA-C [address] [phone] Social History Tobacco Use Types Packs/Day Years Used Date Smoking Tobacco: Never Smokeless Tobacco: Never Alcohol Use Standard Drinks/Week Comments Yes 1 (1 standard drink = 0.6 oz pure alcohol) maybe 1 glass of wine every other day [facility] Utilities Answer Date Recorded In the past 12 months has [facility] [employer], oil, or water [employer] threatened to shut off services in your [...] any time in the past 12 m [facility], were you homeless or living in a jail (including now)? 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 Per discharge instructions, this medication was only neededfor the first 3 days following surgery. Refill is not appropriate, as therapy is complete: Tranexamic Acid - 1950 mg daily for post op days 1-3. Sent to prescription. 650 mg tablets - take 3tablets once daily on Tuesday and Tuesday. documented in this encounter Plan of Treatment Upcoming Encounters Date Type Department Care Team (Late st Contact Info) Description 03/26/2025 11:20 AM PST Office Visit [facility] Cardiology [address], [address] [place] [phone] Della Cloud MD [address] [place] [address] [address] [place] [address] 04/30/2025 11:00 AM PST Office Visit [facility] Family Medicine [place] [address] [place] [address] Yisel Madera DO [address] [place] [address] 05/27/2025 12:00 PM PST Office Visit [facility] - [place] - Sleep Medicine [address] [facility] [address] [place] [phone] Marely Gutierrez ARNP [address] [place], [place] [phone] documented as of this encounter Visit Diagnoses Not on filedocumented in this encounter Care Teams Detonator Assembler Relationship Specialty Start Date End Date Yisel Madera DO [address] [place] [phone] PCP - General Family Medicine 04/22/20 documented as of this encounter
--- NOTE | 2025-03-03 18:33 | ED Physician Documentation ---
History of Present Illness Stated complaint Stated Complaint: LT SIDE FACE DROOPING, HBP Chief complaint Chief Complaint: Neuro History obtained from History obtained from: Patient and Family Additonal information Additional information: 69-year-old gentleman presents by private vehicle with his . He has a history of PVCs, hypertension on low-dose of metoprolol, hypothyroidism. No history of neurologic issues or strokes. Does have a lot of orthopedic issues with multiple joint replacements in the past. Starting around 8 AM this morning he developed left facial drooping and drooling. He notes no other symptoms. noted his blood pressures were higher than normal at home in the range of 130/100. Meds/Allgy Home Medications Ambulatory Orders Medication Instructions Recorded Confirmed levothyroxine .ROUTE 03/03/25 metoprolol succinate 50 mg mg PO DAILY irregular heart rate 03/03/25 tablet,extended release 24 hr Allergies Allergies Allergy/AdvReac Type Severity Reaction Status Date / Time Penicillins Allergy Intermediate Diarrhea Verified 03/03/25 19:01 PFSH Active Problems All Active Problems (Updated 03/03/25 @ 19:14 by Patricia Trejo RN) Atrial fibrillation (Chronic) Cerebrovascular accident (CVA) (Acute) Medical History Medical History (Updated 03/03/25 @ 19:14 by Patricia Trejo RN) Hypothyroid Surgical History Surgical History (Updated 03/03/25 @ 19:14 by Patricia Trejo RN) History of total knee replacement History of hip replacement, total Social History Social History (Updated 03/03/25 @ 19:16 by Patricia Trejo RN) Smoking Status: Never smoker Living arrangement: At home Marital Status: Living Condition: With spouse/s.o. 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 Exam Exam Vital Signs: Vital Signs x48h Temp Pulse Resp BP Pulse Ox 03/03/25 19:15 81 20 160/111 H 97 12/07/25 18:22 36.4 C L 79 18 182/117 H 97 Constitutional normal general appearance and no apparent distress HENMT normocephalic Eyes PERRL and EOMs intact bilaterally Respiratory breath sounds equal bilaterally, normal respiratory effort and clear to auscultation bilaterally Cardiovascular normal heart rate noted Irregularly irregular without murmur Gastrointestinal abdomen soft to palpation and nontender to palpation Neurology GCS 15 Results Vitals Vitals: Vital Signs - 24 hr 03/03/25 18:22 03/03/25 19:15 Temperature 36.4 C L Temperature Source Temporal Artery Scan Pulse Rate 79 81 Respiratory Rate 18 20 Blood Pressure 182/117 H 160/111 H O2 Saturation 97 97 O2 Source Room air Room air Pain Intensity 0 0 Oxygen O2 Source Room air EKG (time done) 1855: EKG releavant findings:: EKG personally interpreted by author of this note. Relevant findings are: Atrial fibrillation with rate of 85, low voltage in the extremity leads, no ischemic findings. Labs Labs: Laboratory Tests 03/03/25 03/03/25 18:32 18:33 WBC 8.0 RBC 5.59 Hgb 16.9 Hct 49.6 MCV 88.7 MCH 30.2 MCHC 34.1 RDW 15.3 H Plt Count 223 MPV 9.4 Neut # (Auto) 5.7 Lymph # (Auto) 1.4 L [place] # (Auto) 0.6 Eos # (Auto) 0.2 Baso # (Auto) 0.1 Absolute Nucleated RBC 0.00 Nucleated RBC % 0.0 PT 12.7 H INR 1.1 Sodium 138 Potassium 4.5 Chloride 103 Carbon Dioxide 29 Anion Gap 6.0 BUN 18 Creatinine 1.0 Estimated GFR (MDRD) 75 L Glucose 138 H POC Whole Bld Glucose 142 Calcium 9.5 Total Bilirubin 0.6 AST 15 ALT 16 Alkaline Phosphatase 84 Total Protein 7.0 Albumin 4.2 Globulin 2.8 Albumin/Globulin Ratio 1.5 Lipase 157 H PD Medical Decision Making ED course Reviewed Lab Results: CBC and CMP are unremarkable save mild elevations in glucose and lipase. ED course: 69-year-old gentleman presents with strokelike symptoms. He is not a TNK candidate on arrival due to timeframe (symptoms started around 8 AM and he pr esented around 6:30 PM). NIH stroke scale of 3 for dysarthria and facial droop. Symptoms really not consistent with Kelly's palsy as they do seem to spare the forehead. He went directly over for CT which I independently reviewed and discussed with our radiologist. There is actually a fairly impressively large area of right frontal hypodensity consistent with subacute stroke. It actually impressive how minor his symptomatology is given the area affected. He also had CT angiography showing some stenosis of the superior division of the right M3 MCA. This is not an LVO or intervenable per the radiologist. Clinically and by EKG and cardiac monitoring he is in atrial fibrillation which is of unclear acuity but not previously diagnosed. wondering about cardioversion, but given that he may have further thrombus in the left atrium we discussed with her that this would not be indicated at this time. He is rate controlled. Per uptodate: Withholding anticoagulation for one week has been generally recommended for those with large ischemic stroke, symptomatic hemorrhagic transformation, or poorly controlled hypertension. As such I am just giving him aspirin right now. Spoke with APPLICATION RELEASE MANAGER Kris Obregon for observation at 7:10 PM. Kris did call me back and asked that we consult so stroke with the question of does this patient have a large vessel occlusion based on the radiologist's impression. Spoke with Dr Kraus, telestroke neurologist at 7:33pm, would not benefit from transfer. Aspirin for 7-10 days unless it is surprisingly small stroke on MRI in which case DOAC sooner. The patient and family are counseled as to the diagnosis and need for admission. This document was made in part using voice recognition software, while efforts are made to proofread this document, sound alike an grammatical errors may occur. Discharge Plan Discharge Patient Disposition: ED Place in Observation Condition: Fair Clinical Impression: Cerebrovascular accident (CVA), Atrial fibrillation Prescriptions: No Action metoprolol succinate 50 mg tablet extended release 24 hr PO DAILY Patient Comments: TAKE 1 AND 1/2 TABLETS BY MOUTH DAILY levothyroxine .ROUTE Print Language: Armenian Stand Alone Forms: PCP List NIHSS Time 1824: Time: 18:25 Level of Consciousness Level of consciousness: (0) Alert, Keenly responsive LOC Questions: (0) Answers both Q's correct LOC Commands: (0) Performs both correctly Gaze Best Gaze: (0) Normal Visual Visual: (0) No loss Facial Palsy Facial Palsy: (2) Partial paralysis (Left face, seems to spare the forehead) Motor Arms (both separate) Motor Arm (right): (0) No drift Motor Arm (left): (0) No drift Motor Legs (both separate) Motor Leg (right): (0) No drift Motor Leg (left): (0) No drift Limb Ataxia Limb Ataxia: (0) Absent Sensory Sensory: (0) Normal Best Language Best Language: (0) No aphasia Dysarthria Dysarthria: (1) Ahgb-ex-sacsfshg dysarthria Extinction and Inattention (formally neg Extinction and inattention: (0) No abnormality Total Score/Results Total Score/Result: 3
[2025-03-03 18:39] LABS: HCT - HEMATOCRIT 49.6 % (42.0-52.0); HGB - HEMOGLOBIN 16.9 g/dL (14.0-18.0); MEAN PLATELET VOLUME 9.4 fL (7.4-11.4); NRBC ABSOLUTE COUNT (AUTO) 0.00 x10^3/uL; NUCLEATED RED BLOOD CELLS AUTO 0.0 /100WBC; PLT - PLATELET COUNT 223 10^3/uL (130-450); RED CELL DISTRIBUTION WIDTH 15.3 % (12.0-15.0)
[2025-03-03 18:45] LABS: INR 1.1 (0.8-1.2); PT - PROTHROMBIN TIME 12.7 secs (9.9-12.6)
[2025-03-03 18:56] LABS: ALT ALANINE AMINOTRANSFERASE 16.0 IU/L (10-60); AST ASPARTATE AMINOTRANSFERASE 15.0 IU/L (10-42); BUN - BLOOD UREA NITROGEN 18.0 mg/dL (6-20); CARBON DIOXIDE - CO2 29.0 mmol/L (21-32); CREATININE 1.0 mg/dL (0.6-1.3); GFR - MDRD 75.0 (>89)
--- NOTE | 2025-03-03 19:00 | CT Report ---
PROCEDURE: CT Head W/O Stroke Protocol INDICATIONS: Neuro deficit, acute, stroke suspected TECHNIQUE: Noncontrast angled axial sections acquired from the foramen magnum to the vertex, with coronal reformats. For radiation dose reduction, the following was used: automated exposure control, adjustment of mA and/or kV according to patient size. COMPARISON: None. FINDINGS: Image quality: Excellent. CSF spaces: Basal cisterns are patent. No extra-axial fluid collections. Ventricles are normal in size and shape. Brain: No midline shift. No intracranial mass effect or hemorrhage. Blurring of the daniels-white matter junction of the right middle and inferior gyri of the frontal lobe, which extends along the anterior margin of the anterior limb of the external capsule and along the anterior right insula. Skull and face: Calvarium and visualized facial bones are intact, without suspicious lesions. Sinuses: Visualized sinuses and mastoids are clear. IMPRESSION: Blurring of the daniels-white matter junction in the right frontal lobe, concerning for acute infarct in the right MCA vascular territory. No intracranial hemorrhage. This study fulfills neurological imaging criteria for inclusion or exclusion of acute stroke therapies based on available published neurological imaging guidelines. Findings were discussed with ordering provider on 03/03/2025 at 17:57 PM AKST. Reviewed by: Greard Silva MD on 03/03/2025 5:57 PM AKST Approved by: Gerard Silva MD on 03/03/2025 5:57 PM AKST Station ID: [id number]
--- NOTE | 2025-03-03 19:03 | CT Report ---
PROCEDURE: CT Angio Head/Neck INDICATIONS: cva sx CONTRAST: OMNI 300 80 TECHNIQUE: After the administration of intravenous contrast, images were acquired from the aortic arch through the [place]. 3-dimensional aaqvrwo-lyciqzult-kvfqvcqigi (MIP) and volume rendering reformats were acquired of the central intracranial vasculature and neck separately. COMPARISON: None. FINDINGS: Image quality: Diagnostic. Cerebral CT Angiogram: Internal carotid arteries: No acute findings. Intracranial ICA are patent with no significant stenosis. No occlusion. No aneurysm. Anterior cerebral arteries: Unremarkable. No significant stenosis. No occlusion. No aneurysm. Middle cerebral arteries: Asymmetric decreased caliber of the superior division of the right M3 middle cerebral artery (best visualized on series 5 image 165), along the posterior insula. No focal filling defect to suggest large vessel occlusion. There is mild scattered atherosclerotic stenosis of the proximal right M2 segment. The left MCA is unremarkable.. No significant stenosis. No occlusion. No aneurysm. Posterior cerebral arteries: Unremarkable. No significant stenosis. No occlusion. No aneurysm. Basilar artery: Unremarkable. No significant stenosis. No occlusion. No aneurysm. Vertebral arteries: Unremarkable as visualized. Dural venous sinuses: Unremarkable given phase of enhancement. Other: Again seen blurring of the daniels-white matter differentiation of the anterior right MCA territory correspond to the right middle and inferior gyri of the frontal lobe. Otherwise, no interval hemorrhagic conversion. No hyperdense dot sign. Neck CT Angiogram: Internal carotid arteries: Unremarkable. No significant stenosis. No dissection or occlusion. Common carotid arteries: Unremarkable. No significant stenosis. No dissection or occlusion. External carotid arteries: Unremarkable. No occlusion. Vertebral arteries: Left dominant, otherwise unremarkable. No significant stenosis. No dissection or occlusion. Aortic Arch and Mediastinum: Partially visualized aortic arch unremarkable without evidence of aneurysm. Origins of the great vessels unremarkable. Other: Multilevel degenerative disc osteophyte complexes. Otherwise the arterial phase soft tissues of the neck and chest are unremarkable. IMPRESSION: 1. Asymmetric decreased caliber of the superior division of the right M3 middle cerebral artery along the posterior insula. No focal filling defect to suggest large vessel occlusion. 2. Again seen blurring of the daniels-white matter differentiation in the anterior right MCA territory, concerning for acute to subacute infarct. The estimate of stenosis included in the report of the imaging study was calculated using the NASCET method Reviewed by: Gerard Silva MD on 03/03/2025 6:00 PM AKST Approved by: Gerard Silva MD on 03/03/2025 6:00 PM [facility] Station ID: [id number]
[2025-03-03] MEDS: ASPIRIN CHEW 81 MG TABLET PO STA (19:20)
[2025-03-03] MEDS ORDERED: ONDANSETRON ODT 4 MG TABLET TL PRN (19:57)
[2025-03-03] MEDS ORDERED: SODIUM CHLORIDE FLUSH 0.9% 10 ML SYRINGE IVP PRN (19:57)
[2025-03-03] MEDS ORDERED: ONDANSETRON 4 MG/2 ML VIAL IVP PRN (19:57)
[2025-03-03] MEDS ORDERED: ACETAMINOPHEN 325 MG TABLET PO PRN (19:57)
--- NOTE | 2025-03-03 20:43 | HISTORY & PHYSICAL EXAMINATION ---
Chief Complaint Chief Complaint Chief Complaint: Facial droop History of Present Illness Admitted From Admitted From:: Home with History Obtained From History obtained from: Patient interview History of Present Illness HPI Comment/Other: 69-year-old male with history of hypothyroidism as well as sleep apnea and a arrhythmia he describes as irregularly skipping a beat. He presents with right sided facial droop that started at 8 AM today is noted by his . He reports some slurring with the speech, and slight numbness around the right side of his mouth. In the ER, CT, CTA head and neck were performed which showed concern for acute to subacute right MCA infarct as well as asymmetric decreased caliber of the superior division of the right M3 MCA. Neurology was contacted by ED provider, who recommended admission here for aspirin, echo, MRI. Hospitalist was contacted for admission for acute stroke Meds/Allgy Home Medications Ambulatory Orders Medication Instructions Recorded Confirmed levothyroxine 175 mcg PO DAILY 03/03/25 metoprolol succinate 50 mg 75 mg PO DAILY irregular he art rate 03/03/25 03/03/25 tablet,extended release 24 hr Allergies Allergies Allergy/AdvReac Type Severity Reaction Status Date / Time Penicillins Allergy Intermediate Diarrhea Verified 03/03/25 19:01 PFSH Active Problems All Active Problems (Updated 03/03/25 @ 19:14 by Patricia Trejo RN) Atrial fibrillation (Chronic) Cerebrovascular accident (CVA) (Acute) Medical History Medical History (Updated 03/03/25 @ 19:14 by Patricia Trejo RN) Hypothyroid Surgical History Surgical History (Updated 03/03/25 @ 19:14 by Patricia Trejo RN) History of total knee replacement History of hip replacement, total Social History Social History (Updated 03/03/25 @ 19:16 by Patricia Trejo RN) Smoking Status: Never smoker Living arrangement: At home Marital Status: Living Condition: With spouse/s.o. 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 Review of Systems Status of ROS: 10 or more systems reviewed and unremarkable except as noted in history and below Exam Exam Vital Signs: Vital Signs x48h Temp Pulse Resp BP Pulse Ox O2 Flow Rate 03/03/25 19:45 80 18 152/113 H 98 2 03/03/25 19:15 81 20 160/111 H 97 03/03/25 18:22 97.5 F L 79 18 182/117 H 97 Constitutional Obese elderly male in no acute distress HENVA normocephalic and head/scalp atraumatic Eyes PERRL Chest inspection of chest normal Respiratory breath sounds equal bilaterally and normal respiratory effort Cardiovascular normal heart rate noted, rhythm abnormal (irregular) and peripheral pulses 2+ throughout Gastrointestinal abdomen normal to inspection and abdomen soft to palpation Protuberant abdomen Extremities normal to inspection Neurology GCS 15 Right sided facial droop, some numbness to the right side of his mouth. Slurred speech Psychiatry mental status grossly normal, oriented x3 and thought process normal Skin skin color normal Conclusion/Plan Problem List (1) Cerebrovascular accident (CVA): Plan: Onset of symptoms at 8 AM today, he is outside the window for any TNK CT/CTA shows asymmetric decreased caliber of superior division of right M3 MCA with resultant acute to subacute infarct in the anterior right MCA territory Case was reviewed by teleneurology, who recommended no neurovascular intervention He was loaded with aspirin in the ED Continue aspirin 81 mg daily Telemetry Echo MRI brain Atorvastatin 40 mg nightly PT/ST eval Neurochecks Nursing swallow eval (2) Atrial fibrillation: Plan: Patient reports to me a history of dysrhythmia. He describes it as skipping a beat every so often, and that it is irregular He takes metoprolol for rate control I am unsure at this point whether or not he has history of atrial fibrillation, nonetheless he is getting an echocardiogram as part of his normal stroke workup His heart rate is controlled Check TSH in a.m. Telemetry Holding his metoprolol for now as his heart rate is under control and I am attempting to allow for permissive hypertension (3) Hypothyroid: Plan: TSH in a.m. Restart home dose Synthroid after pharmacy review Plan Admit inpatient med floor Full code His is his surrogate decision maker Lab Results 03/03/25 18:33 03/03/25 18:33 Diagnostic Imaging Results Diagnostic Imaging Results: positive Final report reviewed Core Measures Anticipated LOS I expect patient to be DC'd or transferred within 96 hours.: Yes DVT/VTE - Prophylaxis VTE/DVT Device ordered at admit?: Yes Stroke - Rehab Assessment Rehab services assessment to be ordered?: Yes
--- NOTE | 2025-03-03 21:07 | XRAY Report ---
PROCEDURE: XR Chest 1V INDICATIONS: SOB TECHNIQUE: One view of the chest was acquired. COMPARISON: None. FINDINGS: Surgical changes and devices: None. Lungs and pleura: No pleural effusions or pneumothorax. No consolidation. Mediastinum: Cardiomegaly. Normal contour otherwise. Bones and chest wall: No suspicious bony lesions. Overlying soft tissues appear unremarkable. IMPRESSION: No acute cardiopulmonary process. Reviewed by: Mason Strong MD on 03/03/2025 9:04 PM PST Approved by: Mason Strong MD on 03/03/2025 9:04 PM PST Station ID: [id number]
[2025-03-03] MEDS ORDERED: LORazepam 2 MG/ML VIAL IVP PRN (21:26)
[2025-03-03] MEDS: ATORVASTATIN 40 MG TABLET PO SCH (21:28)
[2025-03-04] MEDS: SODIUM CHLORIDE FLUSH 0.9% 10 ML SYRINGE IVP SCH
[2025-03-04 05:17] LABS: HCT - HEMATOCRIT 46.6 % (42.0-52.0); HGB - HEMOGLOBIN 15.9 g/dL (14.0-18.0); MEAN PLATELET VOLUME 9.6 fL (7.4-11.4); NRBC ABSOLUTE COUNT (AUTO) 0.00 x10^3/uL; NUCLEATED RED BLOOD CELLS AUTO 0.0 /100WBC; PLT - PLATELET COUNT 200 10^3/uL (130-450); RED CELL DISTRIBUTION WIDTH 15.0 % (12.0-15.0)
[2025-03-04 05:34] LABS: BUN - BLOOD UREA NITROGEN 19.0 mg/dL (6-20); CARBON DIOXIDE - CO2 27.0 mmol/L (21-32); CREATININE 0.9 mg/dL (0.6-1.3); GFR - MDRD 84.0 (>89)
--- NOTE | 2025-03-04 08:52 | PROVIDER PROGRESS NOTE ---
<Statement entered by Kris Obregon DNP - 03/04/25 19:30> Patient was seen and examined by me with a separate encounter after being seen by VIVIAN student. I reviewed the student's documentation including patient history, physical examination, laboratory, imaging, clinical assessment and treatment plan. I have discussed the management of the patient with the student, and with the patient. There are no changes. Patient was discharged, see discharge summary Subjective Prog Note Date Prog Note Date: 03/04/25 Prog Note Time: 10:10 Subjective Pt reports feeling: Improved and No change Subjective: Pt neuro deficits have improved today. He has not been drooling and has no appreciable continued facial drooping. Minor strength change in LUE persists, as does minor dysarthria. Pt relates he feels somewhat overwhelmed at the thought of having to undergo any surgery if there were positive findings on ECHO or MRI, and became moderately emotional this AM due to this. 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 Pt denied any PND or orthopnea, but does have baseline LOUISA with CPAP at home. Current Medications Current Medications Current Medications: Current Medications Generic Name Dose Route Start Last Admin Trade Name Freq PRN Reason Stop Dose Admin Acetaminophen 650 mg 03/03/25 19:57 Acetaminophen 325 Mg Tablet PO Q4HR PRN Pain 1 to 4, or Fever Aspirin 81 mg 03/04/25 09:00 Aspirin Ec 81 Mg Tablet PO DAILY SAVI Atorvastatin Calcium 40 mg 03/03/25 21:00 03/03/25 21:28 Atorvastatin 40 Mg Tablet PO 40 mg QPM SAVI Administration Lorazepam 1 mg 03/03/25 21:26 Lorazepam 2 Mg/Ml Vial IVP 03/04/25 21:25 ONCE PRN Anxiety Ondansetron HCl 4 mg 03/03/25 19:57 Ondansetron Odt 4 Mg Tablet TL Q6HR PRN Nausea / Vomiting Ondansetron HCl 4 mg 03/03/25 19:57 Ondansetron 4 Mg/2 Ml Vial IVP Q6HR PRN Nausea / Vomiting Sodium Chloride 10 ml 03/03/25 19:57 Sodium Chloride Flush 0.9% 10 Ml Syringe IVP PRN PRN NEEDED PER PROVIDER ORDERS Sodium Chloride 10 ml 03/04/25 01:00 03/04/25 00:00 Sodium Chloride Flush 0.9% 10 Ml Syringe IVP 10 ml 0100,0900,1700 [facility] Administration Objective Vital Signs/Intake & Output Reviewed Vital Signs: Yes Vital Signs: Vital Signs x48h Temp Pulse Resp BP Pulse Ox 03/04/25 04:57 36.5 C 89 20 146/94 H 96 Intake & Output: Intake & Output 03/01/25 03/02/25 03/03/25 03/04/25 23:59 23:59 23:59 23:59 Output Total 350 / 350 200 / 200 Balance -350 / -350 -200 / -200 Weight (kg) 145 kg Objective General Appearance: positive No acute distress, Alert and Anxious Eyes Bilateral: positive Normal inspection and PERRL Neck: positive Nml inspection Respiratory: positive Chest non-tender, No respiratory distress and Breath sounds nml Cardiovascular: positive No murmur and Irregularly irregular (irreg irreg with irreg corresponding radial pulse) Abdomen: positive Non-tender, Nml bowel sounds and No distention Skin: positive Color nml, No rash, Warm and Dry Extremities: positive Non-tender and No pedal edema; negative Pedal edema Neurologic/Psychiatric: positive Oriented x3 and CN's nml (2-12) Lab Results 03/04/25 04:42 03/04/25 04:42 Other Labs: Lab Results x24hrs 03/04/25 03/03/25 03/03/25 Range/Units 04:42 18:33 18:32 WBC 7.8 8.0 (4.8-10.8) x10^3/uL RBC 5.30 5.59 (4.70-6.10) 10^6/uL Hgb 15.9 16.9 (14.0-18.0) g/dL Hct 46.6 49.6 (42.0-52.0) % MCV 87.9 88.7 (80.0-94.0) fL MCH 30.0 30.2 (27.0-31.0) pg MCHC 34.1 34.1 (32.0-36.0) g/dL RDW 15.0 15.3 H (12.0-15.0) % Plt Count 200 223 (130-450) 10^3/uL MPV 9.6 9.4 (7.4-11.4) fL Neut # (Auto) 5.9 5.7 (1.5-6.6) 10^3/uL Lymph # (Auto) 1.1 L 1.4 L (1.5-3.5) 10^3/uL [place] # (Auto) 0.5 0.6 (0.0-1.0) 10^3/uL Eos # (Auto) 0.2 0.2 (0.0-0.7) 10^3/uL Baso # (Auto) 0.1 0.1 (0.0-0.1) 10^3/uL Absolute Nucleated RBC 0.00 0.00 x10^3/uL Nucleated RBC % 0.0 0.0 /100WBC PT 12.7 H (9.9-12.6) secs INR 1.1 (0.8-1.2) Sodium 138 138 (135-145) mmol/L Potassium 4.1 4.5 (3.5-4.5) mmol/L Chloride 103 103 (101-111) mmol/L Carbon Dioxide 27 29 (21-32) mmol/L Anion Gap 8.0 6.0 (6-13) BUN 19 18 (6-20) mg/dL Creatinine 0.9 1.0 (0.6-1.3) mg/dL Estimated GFR (MDRD) 84 L 75 L (>89) Glucose 131 H 138 H (74-104) mg/dL POC Whole Bld Glucose 142 (70-100) mg/dL Calcium 9.2 9.5 (8.5-10.3) mg/dL Total Bilirubin 0.6 (0.2-1.0) mg/dL AST 15 (10-42) IU/L ALT 16 (10-60) IU/L Alkaline Phosphatase 84 (42-121) IU/L Total Protein 7.0 (6.4-8.9) g/dL Albumin 4.2 (3.2-5.5) g/dL Globulin 2.8 (2.1-4.2) g/dL Albumin/Globulin Ratio 1.5 (1.0-2.2) Lipase 157 H (11-82) U/L TSH 2.74 (0.34-5.60) uIU/mL Diagnostic Imaging Diagnostic Imaging Results: positive Final report reviewed and Read independently Assessment/Plan Problem List (1) Cerebrovascular accident (CVA): Impression: Onset of symptoms at 8 AM yesterday, he is outside the window for any TNK CT/CTA shows asymmetric decreased caliber of superior division of right M3 MCA with resultant acute to subacute infarct in the anterior right MCA territory Case was reviewed by teleneurology, who recommended no neurovascular intervention He was loaded with aspirin in the ED Continue aspirin 81 mg daily Patient has been on telemetry, showing afib and PVCs. Echo has been completed, waiting on report and images. MRI brain ordered, pt related concerns for claustrophobia with machine. Went and conferred with DI staff, and pt shoulders will touch, but pt told this early, and we can consider mild anxiolysis if this smooth the procedure. Atorvastatin 40 mg nightly PT/ST eval Neurochecks. PT CN2-12 intact on exam this AM, PERRL with normal EOMs, no palmar drift observed this AM, but Physical Therapy did observe some L sided palmar drift later in the AM, strength 5 on RUE, 4 on LUE, 5 on bilat LE. DTRs 2+ globally, PT reports coordination issues, but may be compounded by orthopedic injuries and . Nursing swallow eval today and follow up with Speech and PT. Per PT, pt able to dispo to home for outpt rehab, which aligns with pt and pt family desires. Qualifiers: CVA mechanism: other Qualified Code(s): I63.89 - Other cerebral infarction (2) Atrial fibrillation: Impression: Patient reports to me a history of dysrhythmia, sees Dr. Cloud in [place]. He describes it as skipping a beat every so often, and that it is irregular. He takes metoprolol for rate control Per pt and pt's , pt is not aware of a confirmed Afib diagnosis, only of dysrhythmia, nonetheless he is getting an echocardiogram as part of his normal stroke workup, and we will further assess. Check TSH in a.m. Telemetry Restart metoprolol due to passed 24hr window of permissive hypertension. Qualifiers: Atrial fibrillation type: unspecified chronic Qualified Code(s): I48.20 - Chronic atrial fibrillation, unspecified (3) Hypothyroid: Impression: TSH in a.m. Restart home dose Synthroid after pharmacy review, pt relates that we should touch base with PCP if we are unsure about any items on med rec. Qualifiers: Hypothyroidism type: other Qualified Code(s): E03.8 - Other specified hypothyroidism
--- NOTE | 2025-03-04 08:57 | PHARMACY PROGRESS NOTE ---
Best Possible Medication History Admit Date and Time: 03/03/25 193 Home Medications Medication Instructions Recorded Confirmed Type metoprolol succinate 50 mg 75 mg PO DAILY irregular he art rate 03/03/25 03/03/25 History tablet,extended release 24 hr levothyroxine 175 mcg tablet 175 mcg PO QDAC 03/04/25 03/04/25 History (Levoxyl) Processed by: Pharmacy Medications reviewed in ED?: No Medication History completed: Yes Patient Interview: Completed Secondary Source(s): Spouse/Significant other, Pharmacy records and Insurance records [facility] Statement: As the person ultimately responsible for medication therapy, providers are able to order a medication from an existing home medication list in [facility] via the "Reconcile Routine" prior to Confirmation of that medication by senior safety support manager. Such practice is discouraged except when the physician, in their clinical judgment, deems that a medical need exists for a medication without regard to previous use.
[2025-03-04] MEDS: ASPIRIN EC 81 MG TABLET PO SCH (09:35)
--- NOTE | 2025-03-04 12:32 | MRI Report ---
PROCEDURE: MRI Brain WO INDICATIONS: Stroke workup TECHNIQUE: Multisequence MRI of the brain was performed without intravenous contrast. COMPARISON: CT head without contrast dated 03/03/2025, CT angiogram of the head and neck dated 03/03/2025 FINDINGS: Image quality: Diagnostic. CSF Spaces: Basal cisterns are patent. No extra-axial fluid collections. Ventricles are normal in size and shape. Brain: No intracranial mass effect or hemorrhage. Starkey/white matter interface is normal. Brainstem appears normal. Diffusion-weighted images demonstrate a moderate-sized MCA distribution right frontal infarct with restricted water diffusion measuring 3.7 x 7.7 cm on axial diffusion image 38 of series 12. There is associated cytotoxic edema, mainly involving the involved cortex. There is no significant mass effect or midline shift. Petechial hemorrhage is noted. Reference SWI image 48 of series 10 as a unit support representative image. No chronic ischemic insults. Normal intravascular flow voids are present. Skull and face: Calvarium has normal marrow signal. Orbits appear normal. Sinuses: Sinuses and mastoids are clear. IMPRESSION: Acute moderate sized right MCA distribution right frontal infarct with cytotoxic edema and petechial hemorrhage. Reviewed by: Jovani Leone MD on 03/04/2025 12:29 PM PST Approved by: Jovani Leone MD on 03/04/2025 12:29 PM PST Station ID: [id number]
--- NOTE | 2025-03-04 13:03 | PT Plan of Care ---
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 MEDICAL/SURGICAL HISTORY Medical History (Updated 03/04/25 @ 08:54 by Axel Arteaga) Hypothyroid Surgical History (Updated 03/03/25 @ 19:14 by Patricia Trejo RN) History of total knee replacement History of hip replacement, total BALANCE/FUNCTIONAL RESULTS Sitting Balance: Good Standing Balance: Fair Chandler Balance Evaluation Total Score: 37 Chandler Balance Test Interpretation: Medium Fall Risk ASSESSMENT Assessment: The pt is a 69 y/o M who arrived to the ED on 03/03/25 due to dysarthria and headache, he was hospitalized after CT was suggestive for a CVA, MRI was completed today and per the radiologists report the pt has a "moderate sized right MCA distribution right frontal infarct with cytotoxic edema and petechial hemorrhage". PMH includes B TKA's, R RYLEY, orthopedic shoulder surgery, a-fib, hypothyroidism. Please see chart for complete medical hx. The pt was received resting comfortably supine in bed with his CPAP on while his was in the room. He presented today with speech difficulties, mild L UE and LE strength deficits, impaired standing balance, decreased activity tolerance, and mild impulsivity all of which limited his tolerance and safety during functional mobility. His CHANDLER score = 37/56 which places the pt in a moderate fall risk category. His pulse remained 101-128 bpm throughout this session whether at rest or active. It is recommended that the pt be assessed by INDUSTRIAL HYGIENE MANAGER. At this time recommend continued skilled PT intervention while in the acute setting and DC home with OP therapy services for further rehab once pt medically stable. This plan was discussed with the pt and his , they were both in agreement with this. At the end of the session the pt reported new onset of R sided facial paresthesias, this was reported to the 2 hospitalists on duty. The pt was transferring to a to get his MRI at the end of the session. RN, MD, and DNP all updated on pt's status and DC rec. PATIENT/FAMILY GOALS Patient/Family Goals: To be able to go home and walk without falling GOALS Improve supine to sit to:: Independent Improve sit to stand to:: Modified Independent Improve pivot transfer ability to:: Modified Independent Improve sit to supine to:: Independent Other transfer goal:: STS with SPC Improve gait ability to:: SBA Advance Assistive Device to:: Front Wheeled Walker Increase distance walked to (in feet):: 400 PLAN Frequency: 1-2x/day Duration: Until discharge DISCHARGE RECOMMENDATIONS Discharge Location: Previous Living Situation Support/Services Needed: Outpt. P.T. Other Discharge Equipment: shower chair and grab bars in the shower Transport Needs at Discharge: Personal vehicle
[2025-03-04] MEDS: METOPROLOL SUCCINATE 25 MG TABLET PO SCH (13:55)
[2025-03-04] MEDS: BARIUM SULFATE 700 MG TABLET PO ONE (16:05)
[2025-03-04] MEDS: BARIUM SULFATE 240 ML ORAL.SUSP PO ONE (16:05)
[2025-03-04] MEDS: BARIUM SULFATE 148 GM POWDER PO ONE (16:06)
[2025-03-04 16:34] VITALS: TEMP 97.7
--- NOTE | 2025-03-04 16:38 | Discharge Summary ---
"<Statement entered by Kris Obregon DNP - 03/04/25 19:36> Patient was seen and examined by me with a separate encounter after being seen by VIVIAN student. I reviewed the student's documentation including patient history, physical examination, laboratory, imaging, clinical assessment and treatment plan. I have discussed the management of the patient with the student, and with the patient. There are no changes. Briefly, patient was admitted for acute stroke. He was evaluated by PT and ST, and underwent modified barium swallow. He was cleared for discharge to home with outpatient therapies. I spoke with Dr. Grubbs at [facility] neurology regarding his MRI findings, he wrote recommended DAPT x 21 days and further follow-up with cardiology. Family had reported that he has had increased exercise intolerance, so he will also need follow-up on his echocardiogram to determine if he has heart failure Full problem list at discharge: CVA As below Atrial fibrillationas below Hypothyroidismchronic Discharge Summary Admit Date: 03/03/25 Discharge Date: 03/04/25 Discharging Provider: Kris Obregon DNP Primary Care Provider: Joaquín Ellison Code Status: Attempt Resuscitation Discharge Facility Name: [facility] DIAGNOSES Admission Diagnoses: Atrial Fibrillation, CVA Discharge Diagnoses with Status of Each Condition: CVA MRI, CT, and CTA obtained. MRI has demonstrated moderate-sized MCA distribution right frontal infarct outside the window for TNK or thrombectomy. Pt initial neuro deficits have slightly improved, and patient was seen by Physical Therapy, Speech Pathology, and Social Work and have worked together to refine rehabilitation plan with family. Pt is medically clear and will be managed based on neuro consult recommendations of DAPT with bridge to DOAC for CVA prophylaxis. Atrial Fibrillation Pt has known dysrhythmia, and was demonstrated to have Afib via telemetry and 12-lead EKG. ECHO was obtained and results are still pending. Pt remained hemodynamically stable during stay and was continued on rate control with home Metoprolol. Afib has not abated. We did not initiate an anticoagulant given the acute window for conversion hemorrhage. HPI History of Present Illness: 69-year-old male with history of hypothyroidism as well as sleep apnea and a arrhythmia he describes as irregularly skipping a beat. He presents with right sided facial droop that started at 8 AM today is noted by his . He reports some slurring with the speech, and slight numbness around the right side of his mouth. In the ER, CT, CTA head and neck were performed which showed concern for acute to subacute right MCA infarct as well as asymmetric decreased caliber of the superior division of the right M3 MCA. Neurology was contacted by ED provider, who recommended admission here for aspirin, echo, MRI. Hospitalist was contacted for admission for acute stroke. CONSULTS | PROCEDURES Consultations: Neuro, Radiology Procedures: CT, CTA, MRI, Echo, MBS HOSPITAL COURSE Hospital Course: Pt was admitted due to above criteria, and workups competed for quantifying degree of infarct, origin of thrombus, degree of neuro deficit, and appropriate rehabilitation pathway. CT, CTA, and MRI performed for visualizing infarct area, results as above. Carotids did not show significant occlusion. ECHO was obtained to assess cardiembolic origin of infarct, still waiting on results. Pt also has a history of recent exercise intolerance and increasing edema, and an ECHO may provide additional diagnostic benefit for outpatient care. PCP and Cardiology needs to review this imaging in further treatment. Pt was NIHSS score of 3 at admission, and is NIHSS of 3 at discharge. Pt was loaded with ASA, kept on 81mg/day during stay. Kept in the 24hr window of permissive hypertension, after which point, home Metoprolol dose reinitiated for BP and rate control. DAPT therapy initiated on recommendation of neuro consult, and will be continued for 21 days. Physical Therapy, Speech Pathology (including diagnostic MBS), and Social Work consulted and pt is cleared for home rehab. Pt medically cleared by team for further care in the outpatient setting. ALLERGIES Allergies Allergy/AdvReac Type Severity Reaction Status Date / Time Penicillins Allergy Intermediate Diarrhea Verified 03/03/25 19:01 MEDICATIONS Ambulatory Orders Medication Instructions Recorded Confirmed metoprolol succinate 50 mg 75 mg PO DAILY irregular he art rate 03/03/25 03/03/25 tablet,extended release 24 hr aspirin 81 mg tablet,delayed 81 mg PO DAILY 30 days #3 0 tabs 03/04/25 release atorvastatin 40 mg tablet 40 mg PO QPM 30 days #30 tab s 03/04/25 clopidogrel 75 mg tablet (Plavix) 75 mg PO DAILY 21 da ys #21 tabs 03/04/25 levothyroxine 175 mcg tablet 175 mcg PO QDAC 03/04/25 03/04/25 (Levoxyl) PHYSICAL EXAM AT DISCHARGE Vital Signs: Vital Signs x48h Temp Pulse Resp BP Pulse Ox 03/04/25 16:10 36.5 C 93 18 139/95 H 97 03/04/25 13:55 106 H 16 134/86 H 97 General Appearance: positive No acute distress Eyes Bilateral: positive Normal inspection and PERRL Neck: positive Nml inspection Respiratory: positive Chest non-tender, No respiratory distress and Breath sounds nml Cardiovascular: positive Irregularly irregular Peripheral Pulses: positive 2+ Abdomen: positive Non-tender and Nml bowel sounds Skin: positive Color nml, Warm and Dry Neurologic/Psychiatric: positive Oriented x3 LABS 03/04/25 04:42 03/04/25 04:42 DIAGNOSTIC IMAGING Diagnostic Imaging Results: Final report reviewed and Read independently FOLLOW UP Follow Up: PCP, Mutuel Cashier need follow up with ECHO results, discuss anticoagulation at a later time. Follow up with physical therapy and speech pathology. TIME SPENT Time Spent in Discharge (Minutes): 37 Discharge Plan Discharge Patient Disposition: Home, Self Care Condition: Fair Prescriptions: New aspirin 81 mg Tablet,Delayed Release (Dr/Ec) 81 mg PO DAILY 30 Days Qty: 30 0RF atorvastatin 40 mg Tablet 40 mg PO QPM 30 Days Qty: 30 0RF clopidogrel [Plavix] 75 mg tablet 75 mg PO DAILY 21 Days Qty: 21 0RF Continued metoprolol succinate 50 mg tablet extended release 24 hr 75 mg PO DAILY Patient Comments: TAKE 1 AND 1/2 TABLETS BY MOUTH DAILY levothyroxine [Levoxyl] 175 mcg tablet 175 mcg PO QDAC Activity Restrictions: No Restrictions Diet: Soft Health Concerns: You are being discharged home after treatment for a stroke. This handout explains your medications, follow-up appointments, and steps to prevent another stroke. Your Medications Take all medications exactly as prescribed: * Aspirin and clopidogrel (dual antiplatelet therapy): You will take both of these blood thinners together for 21 to 90 days to prevent another stroke. After this period, your doctor will likely stop one of these medications and have you continue with just one blood thinner. Taking both medications longer than 90 days increases bleeding risk without additional benefit. * Atorvastatin: This cholesterol medication helps prevent another stroke by reducing plaque buildup in your arteries. Continue taking this medication daily as prescribed. * Metoprolol: This medication controls your heart rate and helps manage your atrial fibrillation (irregular heartbeat). Important: Do not stop any medication without talking to your doctor first. If you have bleeding, bruising, or other side effects, contact your doctor right away. Follow-Up Appointments * Primary care provider: Schedule an appointment within 1-2 weeks of discharge. Your primary care provider will monitor your blood pressure, adjust medications if needed, and arrange your physical therapy and speech therapy. * Cardiology: You will need a follow-up appointment with a substance abuse specialist to monitor your recovery and ensure you are on the right medications. Physical Therapy and Speech Therapy Your primary care provider is arranging outpatient therapy to help with your recovery: * Physical therapywill help improve your strength, balance, and ability to move safely. * Speech therapywill help if you have difficulty speaking, swallowing, or understanding language. Attend all therapy sessions. Recovery takes time, and regular therapy is essential for the best outcome. Preventing Another Stroke Making healthy lifestyle changes can reduce your risk of having another stroke by up to 80%: * Diet: Follow a Mediterranean-style diet or low-salt DASH diet. Eat more fruits, vegetables, whole grains, and fish. Limit fried foods, processed meats, and sugary drinks. Make sure these foods are soft, and that you are fluids are thickened to nectar consistency * Exercise: Aim for at least 10 minutes of moderate exercise (like brisk walking) four times per week. Break up sitting time by moving for 3 minutes every 30 minutes. Always exercise in a safe, supervised manner, especially as you recover. * Blood pressure: Keep your blood pressure under control. Your goal is typically less than 130/80. Take your blood pressure medications as prescribed. * Quit smoking: If you smoke, quitting is one of the most important things you can do to prevent another stroke.[3] * Limit alcohol: Avoid excessive alcohol use. Warning Signs of Another Stroke Call 911 immediately if you experience: * Sudden weakness or numbness in your face, arm, or leg (especially on one side) * Sudden confusion or trouble speaking or understanding speech * Sudden trouble seeing in one or both eyes * Sudden trouble walking, dizziness, or loss of balance * Sudden severe headache with no known cause Questions or Concerns If you have questions about your medications, symptoms, or recovery, contact your primary care provider or neurologist. Do not wait until your scheduled appointment if you have concerning symptoms. While here, you were noted to have what appears to be an enlarged heart on chest x-ray. Your normal stroke workup included an echocardiogram. Please review the results from this with your compressor station operator You also underwent barium swallow study with speech therapy. They recommend that you eat a soft diet, and thicken the liquids that you drink to nectar consistency Print Language: Eritrean Patient Instructions: Stroke Swallowing Problems Post Stand Alone Forms: PCP List Follow-up Care: JOAQUÍN HERRERA, DO [Primary Care Provider, Family Practice] Vitals documented within 30 minutes of discharge?: Yes"
--- NOTE | 2025-03-04 17:15 | Speech Therapy Plan of Care ---
DIAGNOSIS Date of Service Date of Service: 03/04/25 Diagnosis: CVA MEDICAL/SURGICAL PAST HISTORY Past History Medical History (Updated 03/04/25 @ 08:54 by Axel Arteaga) Hypothyroid Surgical History (Updated 03/03/25 @ 19:14 by Patricia Trejo RN) History of total knee replacement History of hip replacement, total SPEECH ASSESSMENT Assessment: Pt is a pleasant 69 y/o male who presented to ED on 03/03/25 with dysarthria and headache. CT concerning for CVA. MRI (today) demonstrates a moderate-sized right MCA frontal infarct with cytotoxic edema and petechial hemorrhage per radiology report. Pt reports slurred speech; denies dysphagia or cognitive changes. Initially seen alone, later joined by spouse (PT). Oriented to self, place, and situation; required visual calendar for date. Oral Mechanism Exam: Upon initiation of exam there was moderate left-sided oral residue (pineapple) on left side of tongue and in buccal cavity, requiring multiple sips of thin liquid for clearance. Reduced labial/lingual strength, ROM, and sensation. Weak swallow upon palpation. PO Trials (water, pudding, cracker): Left sided anterior loss of thin liquids. Left-sided oral residue and reduced oral transit. Delayed swallow initiation with suspected premature spillage. Overt s/s of penetration/aspiration: coughing and throat clearing with straw sips of water and with pudding/cracker trials. Weak volitional cough. Cognitive-Linguistic Screening: MoCA 22/30 with deficits in visuospatial skills, attention, and delayed recall. Impression: Findings are consistent with moderate oropharyngeal dysphagia and mild cognitive-linguistic impairment in the context of acute right MCA infarct. Recommendations: Proceed with Modified Barium Swallow Study (MBSS) to further assess swallow physiology and airway protection. Begin soft bite-sized diet with thin liquids pending MBSS. Implement aspiration precautions and assist with PO as indicated. 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 CAREGIVER/PATIENT GOALS Patient/Caregiver Goals: To speak clearly and eat/drink safely SPEECH PLAN OF CARE Treatment Frequency: prn Treatment Duration: prn
--- NOTE | 2025-03-04 17:17 | XRAY Report ---
PROCEDURE: FL Modified Barium Swal W/SP INDICATIONS: Concern for aspiration FLUOROSCOPY TIME: 2.2 MIN TECHNIQUE: Examination was conducted in conjunction with speech pathology, with video filming of the pharynx, hypopharynx, and cervical esophagus in the lateral projection. COMPARISON: None FINDINGS: Laryngotracheal penetration is visualized. No definite aspiration visualized. Normal transit of barium pill into the stomach. No esophageal strictures identified. IMPRESSION: Laryngotracheal penetration without aspiration. Please see separately dictated speech pathology report for full details. Reviewed by: Myra Christianson MD, PhD on 03/04/2025 5:13 PM PST Approved by: Myra Christianson MD, PhD on 03/04/2025 5:13 PM PST Station ID: [id number]
--- NOTE | 2025-03-04 17:40 | Speech Therapy Plan of Care ---
Modified Barium Swallow Evalua MEDICAL HISTORY Medical History: [id number]/25 by Patricia Trejo RN SURGICAL HISTORY Surgical History (Updated 03/03/25 @ 19:14 by Patricia Trejo RN) History of total knee replacement History of hip replacement, total SOCIAL HISTORY Social History (Updated 03/03/25 @ 19:16 by Patricia Trejo RN) Smoking Status: Never smoker Second hand tobacco smoke exposure: No Do you dip or chew tobacco?: No Do you vape?: No Living arrangement: At home Marital Status: Living Condition: With spouse/s.o. 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 Had a Similar Problem Before: No How Did the Problem Start: Suddenly When Did the Problem Start?: 03/03/25 Since Onset the Problem Has Gotten: Same Chief Complaint Comments: Pt is a 69 y/o M who arrived to the ED on 03/03/25 due to dysarthria and headache, he was hospitalized after CT was suggestive for a CVA, MRI was completed today and per the radiologists report the pt has a "moderate sized right MCA distribution right frontal infarct with cytotoxic edema and petechial hemorrhage". Bedside swallow eval concerning for aspiration. Current Diet Current Diet: Soft/bite sized with thin liquids Dentition Dentition: intact/complete Dentition Comments: Implant noted Hearing Hearing: WNL Swallowing Function Introduction and Set-up Introduction & Set-up: MBSS initiated with standardized MBS-ImP protocol; patient oriented to procedure, seated in optimal upright position, and provided with calibrated bolus volumes across consistencies to assess physiologic components of the oral and pharyngeal swallow. Lip Closure Lip Closure: (1) Interlabial escape; no progression to anterior lip Tongue Control During Bolus Hold Tongue Control: (1) Escape to lateral buccal cavity/floor of mouth Bolus Preparation/Mastication Bolus Preparation/Mastication: (1) Slow prolonged chewing/mashing with complete re-collection Bolus Transport/Lingual Motion Bolus Transport/Lingual Motion: (1) Delayed initiation of tongue motion Oral Residue Oral Residue: (2) Residue collection on oral structures Residue Location(s): Tongue and Lateral Sulci Initiation of Pharyngeal Swallow Initiation of Pharyngeal Swallow: (3) Bolus head in pyriforms Oral Phase Comments Oral Phase Comments: Moderate-severe oral impairment Soft Palate Elevation Soft Palate Elevation: (0) No bolus between soft palate (SP)/pharyngeal wall (PW) Laryngeal Elevation Laryngeal Elevation: (1) partial superior movement of thyroid cartilage/partial approx... Anterior Hyoid Excursion Anterior Hyoid Excursion: (1) Partial anterior movement Epiglottic Movement Epiglottic Movement: (0) Complete inversion Laryngeal Vestibular Closure Laryngeal Vestibular Closure: (1) Incomplete; narrow column of air/contrast in laryngeal vestibule Pharyngeal Stripping Wave Pharyngeal Stripping Wave: (1) Presentdiminished Pharyngeal Contraction Pharyngeal Contraction: (0) Complete Pharyngoesophageal Segment Opening Pharyngoesophageal Segment Opening: (0) Complete distension and complete duration; no obstruction of flow Tongue Base (TB) Retraction Tongue base (TB) retraction: (1) Trace column of contrast or air between TB and PW Pharyngeal Residue Pharyngeal Residue: (2) Collection of residue within or on pharyngeal structures Pharyngeal Phase Comments Pharyngeal Phase Comments: Moderate-severe pharyngeal impairment Esophageal Clearance Upright Position Esophageal Clearance Upright Position: (0) Complete clearance; esophageal coating Laryngeal Penetration/Aspiration Laryngeal Penetration/Aspiration: There was one episode of trace, silent aspiration with 5ml sip of thin liquids. Strategies Trialed and Response Strategies Trialed and Response: Chin tuck trial resulted in deep penetration and is not recommended. Impression and Summary Impression: Pt demonstrated a moderate-severe oropharyngeal dysphagia with one episode of trace, silent aspiration of thin liquids. Chin tuck maneuver resulted in deep penetration of thin liquids and is not recommended. [facility] Plan Of Care Intake Recommendations IDDSI Diet Grade: Level 6: Soft & Bite-Sized IDDSI Liquid Consistencies: Level 2: Mildly Thick Support Strategies Supports and Recommendations: Small Sips/Bites, Slow Rate, Alternate Solids and Liquids and Aggressive Oral Care Follow-Up and Referrals Follow-Up and Referrals: Repeat MBS and Other (See Comments below) Recommendation Comments: Recommend outpatient speech therapy for dysphagia and c ognitive linguistic deficits. Patient Education Patient Education: Results of the MBSS were reviewed with the patient and spouse, who were given time to ask questions. Instruction was provided in the Kathie (tongue-hold) exercise, and the patient was given SimplyThick gel thickener sample packets for home liquid thickening following discharge.
[2025-03-04 17:48] VITALS: BP 141/93; O2SAT 95
[2025-03-05] MEDS ORDERED: LEVOTHYROXINE 75 MCG TABLET PO SCH (07:00)
--- NOTE | 2025-03-05 07:13 | ECHO Report ---
Version: 1 Study ID: [id number] [address] [place] [address] Adult Echocardiogram Report Name: JARVIS TERESA Study Date: 03/04/2025, 7: 45 AM BP: 146 / 94 mmHg Patient Location: [facility]^[id number] HR: 88 bpm : 1955 (MM/DD/YYYY) Gender: Male Height: 73 in Age: 69 Years Weight: 319 lb BSA: 2.6 m² Reason For Study: Stroke, new A-fib History: Saline contrast BUBBLE study ordered. No previous study. Interpretation Summary There is moderate concentric increase in the wall thickness of the left ventricle. Global left ventricular systolic function is mildly decreased. The visual left ventricular ejection fraction is estimated at 45 to 50%. Saline contrast BUBBLE study with/without Valsalva is negative for Atrial septal shunt. Left Ventricle: The left ventricle is normal in size. There is moderate concentric increase in the wall thickness of the left ventricle. No thrombus seen in the left ventricle. The visual left ventricular ejection fraction is estimated at 45 to 50%. Global left ventricular systolic function is mildly decreased. Right Ventricle: The right ventricle is mildly dilated. TAPSE is consistent with normal right ventricular function. The tricuspid annular plane systolic excursion (TAPSE) measurement is 1.9 cm. Aortic Valve: The aortic valve is normal in structure and function. The aortic valve is trileaflet. No hemodynamically significant valvular aortic stenosis. No aortic regurgitation is present. Mitral Valve: The mitral valve is visually normal in structure and function. No evidence of mitral stenosis is seen. There is mild mitral regurgitation. Tricuspid Valve: The tricuspid valve is normal in structure and function. There is no tricuspid stenosis. Trace tricuspid regurgitation present. Pulmonic Valve: The pulmonic valve is normal in structure and function. There is no pulmonic valvular stenosis. Trace pulmonic valvular regurgitation is present. Left Atrium: The left atrium is mildly dilated. Right Atrium: The right atrium is moderately dilated. The inferior vena cava is not well visualized. The central venous pressure cannot be estimated on this study. Atrial Septum: The interatrial septum appears normal, without evidence of shunt by 2D imaging and color Doppler. Saline contrast BUBBLE study with/without Valsalva is negative for Atrial septal shunt. Aorta: The ascending aorta is normal in size. The aortic arch is not well seen. The sinuses of Valsalva are normal in size. Pulmonary Artery: The pulmonary artery is normal size. Pulmonary artery systolic pressure could not be estimated due to an insufficient tricuspid regurgitant jet. Pericardium/Pleural Space: There is no pericardial effusion. Left Ventricle IVSd: 1.54 cm LVIDd: 4.9 cm LVPWd: 1.31 cm LVIDs: 3.8 cm ESV(sp4-el): 80.2 ml Right Ventricle TAPSE: 1.91 cm RV S Angel: 10.8 cm/sec Atria LA dimension: 6.3 cm LAV(MOD-sp4): 72.5 ml LAV(MOD-sp2): 71.4 ml Aortic Valve LVOT diam: 2.07 cm LV V1 mean P.27 mmHg LV V1 mean: 51.9 cm/sec LV V1 VTI: 13.1 cm Ao V2 VTI: 20.2 cm Ao mean P.5 mmHg Ao V2 mean: 87.9 cm/sec LV V1 max: 78.0 cm/sec LV V1 max P.43 mmHg Ao max P.0 mmHg Ao V2 max: 122.9 cm/sec Mitral Valve MV max P.3 mmHg MV V2 max: 90.5 cm/sec MV mean P.23 mmHg MV V2 mean: 49.0 cm/sec MV V2 VTI: 17.7 cm Aorta Ao root diam: 3.3 cm MMode/2D Measurements & Calculations Ao root diam: 3.3 cm BMI: 42.1 kilograms/m² BSA([facility]): 2.8 m² ESV(sp4-el): 80.2 ml IVSd: 1.54 cm LA A4C-A/L: 23.9 cm² LA dimension: 6.3 cm LA ESV-A/L: 72.0 ml LA Vol Index: 16.9 ml/m² LAV(MOD-sp2): 71.4 ml LAV(MOD-sp4): 72.5 ml LVIDd: 4.9 cm LVIDs: 3.8 cm LVOT diam: 2.07 cm LVPWd: 1.31 cm RA A4Cs: 23.7 cm² TAPSE: 1.91 cm Doppler Measurements & Calculations Ao max P.0 mmHg Ao mean P.5 mmHg Ao V2 max: 122.9 cm/sec Ao V2 mean: 87.9 cm/sec Ao V2 VTI: 20.2 cm LV V1 max: 78.0 cm/sec LV V1 max P.43 mmHg LV V1 mean: 51.9 cm/sec LV V1 mean P.27 mmHg LV V1 VTI: 13.1 cm MV max P.3 mmHg MV mean P.23 mmHg MV V2 max: 90.5 cm/sec MV V2 mean: 49.0 cm/sec MV V2 VTI: 17.7 cm PA max P.9 mmHg PA V2 max: 98.8 cm/sec RV S Angel: 10.8 cm/sec Other Measurements & Calculations Ao root area: 8.5 cm² ISAIAS(I,D): 2.18 cm² ISAIAS(V,D): 2.14 cm² EDV(Teich): 111.4 ml EF(sp-el): 50.0 % EF(Teich): 45.3 % ESV(Teich): 60.9 ml FS: 22.6 % LVOT area: 3.4 cm² MVA(VTI): 2.50 cm² SV(LVOT): 44.2 ml MD Mary Segundo 03/05/2025, 7: 12 AM Ordering Physician: Kris Obregon Referring Physician: Deshaun Young Performed By: LON
== END 2025-03-04 17:47 | disposition home or self-care (01) | DRG 65 ==
LOC: ED 18:17 → MS2 19:36
PROVIDERS: ADMIT Nurse Practitioner Acute Care; ATTEND Nurse Practitioner Acute Care